=== PATIENT | female | born 1960 | race Caucasian/White ===

== ENCOUNTER 2020-05-31 11:51 | Emergency (ER) | payer OTHER ==
[2020-05-31 13:02] LABS: #Lymphocytes 1.3 thou/uL (1.20-3.40); #Monocytes 0.4 thou/uL (0.11-0.59); #Neutrophils 3.2 thou/uL (1.40-6.50); %Basophils 0.3 % (0.0-1.0); %Eosinophils 0.7 % (0.0-10.0); %Lymphocytes 25.7 % (21.0-51.0); %Monocytes 8.2 % (0.0-10.0); %Neutrophils 65.2 % (42.0-75.0); Hemoglobin 11.5 g/dL (12.0-16.0); Mean Corpuscular HGB CONC 33.2 g/dL (32.0-36.0); Mean Corpuscular Hemoglobin 30.7 pg (27.0-31.0); Mean Corpuscular Volume 92.6 fL (78.0-98.0); Mean Platelet Volume 8.2 fL (7.4-10.4); Platelet Count 243 thou/uL (130-400); RBC Distribution Width 11.7 % (11.5-14.5); Red Blood Cell (RBC) Count 3.76 mill/uL (4.20-5.40); White Blood Cell (WBC) Count 4.9 thou/uL (4.8-10.8)
[2020-05-31 13:27] LABS: ALT (SGPT) 17 U/L (8-55); AST (SGOT) 20 U/L (5-34); Albumin 3.1 g/dL (3.4-4.8); Alkaline Phosphatase 87 U/L (40-110); Anion Gap 15 mmol/L (10-20); BUN (Urea Nitrogen) 34 mg/dL (9.8-20.1); Bilirubin, Total 0.5 mg/dL (0.2-1.2); Calc. Creatinine Clearance 0 mL/min (70-130); Calcium 8.1 mg/dL (7.8-10.44); Carbon Dioxide 28 mmol/L (23-31); Chloride 91 mmol/L (98-107); Estimated GFR-MDRD 25; Globulin 4.1 g/dL (2.4-3.5); Glucose 124 mg/dL (80-115); Lipase 9 U/L (8-78); Protein, Total 7.2 g/dL (6.0-8.3); Sodium 131 mmol/L (136-145)
[2020-05-31 13:30] LABS: Potassium 2.9 mmol/L (3.5-5.1)
[2020-05-31] MEDS ORDERED: Potassium Chloride 20 MEQ TAB ONE (13:55)
[2020-05-31 14:08] LABS: Bacteria/HPF None Seen HPF (None Seen); Bilirubin Negative (Negative); Blood, Urine Negative (Negative); Clarity Clear (Clear); Glucose, Urine (Dipstick) Normal (Negative); Ketone, Urine Negative (Negative); Leukocyte Negative Leu/uL (Negative); Nitrite Negative (Negative); Protein, Urine (Dipstick) 30 mg/dL (Neg-Trace); Specific Gravity, Urine 1.008 (1.002-1.036); Squamous Epithelial None Seen HPF (0-3); Urobilinogen Normal mg/dL (Less than 2); WBC/HPF 0-3 HPF (0-3)
== END 2020-05-31 15:29 | disposition left against medical advice (07) ==
LOC: ERS 11:51
DX: E86.0 Dehydration (principal); E86.1 Hypovolemia; N17.9 Acute kidney failure, unspecified; E87.6 Hypokalemia; E87.1 Hypo-osmolality and hyponatremia; I48.91 Unspecified atrial fibrillation
CPT/HCPCS: 36415; 80053; 81003; 81015; 83605; 83690; 85025; 93005; 96360

== ENCOUNTER 2020-10-13 22:03 | Inpatient (IN) | payer OTHER ==
[2020-10-13 22:36] LABS: Hemoglobin 7.7 g/dL (12.0-16.0); Mean Corpuscular HGB CONC 34.5 g/dL (32.0-36.0); Mean Corpuscular Hemoglobin 30.9 pg (27.0-31.0); Mean Corpuscular Volume 89.5 fL (78.0-98.0); Mean Platelet Volume 7.6 fL (7.4-10.4); Platelet Count 335 thou/uL (130-400); RBC Distribution Width 13.8 % (11.5-14.5); Red Blood Cell (RBC) Count 2.49 mill/uL (4.20-5.40); White Blood Cell (WBC) Count 6.2 thou/uL (4.8-10.8)
[2020-10-13] MEDS ORDERED: Piperacillin/Tazobactam 4.5 GM VIAL ONE (22:43)
[2020-10-13] MEDS ORDERED: metroNIDAZOLE 500 MG/100 ML BAG ONE (22:43)
[2020-10-13 22:45] LABS: ALT (SGPT) 14 U/L (8-55); AST (SGOT) 15 U/L (5-34); Albumin 2.7 g/dL (3.4-4.8); Alkaline Phosphatase 97 U/L (40-110); Anion Gap 31 mmol/L (10-20); BUN (Urea Nitrogen) 99 mg/dL (9.8-20.1); Bilirubin, Total 0.4 mg/dL (0.2-1.2); Calc. Creatinine Clearance 0 mL/min (70-130); Calcium 6.4 mg/dL (7.8-10.44); Chloride 97 mmol/L (98-107); Globulin 4.4 g/dL (2.4-3.5); Glucose 80 mg/dL (80-115); Protein, Total 7.1 g/dL (6.0-8.3); Sodium 133 mmol/L (136-145)
[2020-10-13 22:50] LABS: #Eosinphils 0.1 thou/uL (0.0-0.7); #Lymphocytes 0.6 thou/uL (1.20-3.40); #Monocytes 0.3 thou/uL (0.11-0.59); #Neutrophils 5.2 thou/uL (1.40-6.50); %Eosinophils 1.2 % (0.0-10.0); %Lymphocytes 9.7 % (21.0-51.0); %Monocytes 4.3 % (0.0-10.0); %Neutrophils 84.8 % (42.0-75.0); MDiff Complete? YES
[2020-10-13 22:52] LABS: Carbon Dioxide 9 mmol/L (23-31)
[2020-10-13 23:01] LABS: Magnesium 1.9 mg/dL (1.6-2.6)
[2020-10-13] MEDS ORDERED: Sodium Bicarb 50 MEQ/50 ML Abboject 8.4% SYRINGE ONE (23:33)
[2020-10-14] MEDS ORDERED: Fentanyl 100 MCG/2 ML VIAL ONE ×2 (00:05→06:00)
[2020-10-14] MEDS ORDERED: Hydrocortisone Sod Succ/PF 100 mg/2 ml Vial ONE (00:05)
[2020-10-14] MEDS ORDERED: Norepinephrine 8 MG/0.9% NS 250 ML ONE (00:09)
[2020-10-14] MEDS ORDERED: Sodium Bicarbonate 150 MEQ in Dextrose 5% in Water 1,000 ML IV SCH (00:15)
[2020-10-14] MEDS ORDERED: Norepinephrine 8 MG/0.9% NS 250 ML IVPB SCH (01:15)
[2020-10-14] MEDS ORDERED: Vancomycin HCl 1.25 GM in Sodium Chloride 0.9% 250 ML 250 ML IVPB SCH (02:15)
[2020-10-14 02:26] LABS: Bacteria/HPF None Seen HPF (None Seen); Bilirubin Negative (Negative); Blood, Urine Negative (Negative); Clarity Turbid (Clear); Glucose, Urine (Dipstick) Normal (Negative); Ketone, Urine Negative (Negative); Leukocyte 250 Leu/uL (Negative); Nitrite Negative (Negative); Protein, Urine (Dipstick) 30 mg/dL (Neg-Trace); RBC/HPF 0-3 HPF (0-3); Specific Gravity, Urine 1.014 (1.002-1.036); Transitional Epithelial 0-3 HPF (None Seen); Urobilinogen Normal mg/dL (Less than 2); WBC/HPF 0-3 HPF (0-3)
[2020-10-14 02:38] LABS: SARS-CoV-2 NAA Rapid Test Not Detected (NotDetected)
[2020-10-14 04:43] LABS: #Lymphocytes 0.6 thou/uL (1.20-3.40); #Monocytes 0.1 thou/uL (0.11-0.59); #Neutrophils 6.1 thou/uL (1.40-6.50); %Basophils 0.4 % (0.0-1.0); %Eosinophils 0.6 % (0.0-10.0); %Lymphocytes 8.9 % (21.0-51.0); %Monocytes 1.9 % (0.0-10.0); %Neutrophils 88.2 % (42.0-75.0); Hemoglobin 7.3 g/dL (12.0-16.0); Mean Corpuscular HGB CONC 33.9 g/dL (32.0-36.0); Mean Corpuscular Hemoglobin 30.4 pg (27.0-31.0); Mean Corpuscular Volume 89.8 fL (78.0-98.0); Mean Platelet Volume 7.6 fL (7.4-10.4); Platelet Count 376 thou/uL (130-400); RBC Distribution Width 13.9 % (11.5-14.5); White Blood Cell (WBC) Count 6.9 thou/uL (4.8-10.8)
[2020-10-14 05:03] LABS: Iron 58 ug/dL (50-170); Iron Binding Capacity, Total 111 mcg/dL (265-497)
[2020-10-14 05:06] LABS: Anion Gap 29 mmol/L (10-20); BUN (Urea Nitrogen) 92 mg/dL (9.8-20.1); Calc. Creatinine Clearance 0 mL/min (70-130); Chloride 102 mmol/L (98-107); Glucose 120 mg/dL (80-115); Iron 58 ug/dL (50-170); Iron Binding Capacity, Total 114 mcg/dL (265-497); Potassium 3.8 mmol/L (3.5-5.1); Sodium 136 mmol/L (136-145)
[2020-10-14 05:11] LABS: Calcium 5.8 mg/dL (7.8-10.44); Carbon Dioxide 9 mmol/L (23-31)
[2020-10-14] MEDS ORDERED: Fentanyl 100 MCG/2 ML VIAL SLOW IVP SCH (06:00)
[2020-10-14] MEDS ORDERED: HYDROmorphone 0.5 MG/0.5 ML SYRINGE SLOW IVP SCH (06:15)
[2020-10-14 06:40] LABS: Hep B Core Total Ab Non-Reactive (NonReactive); Hep B Core Total Index 0.19 S/CO (0-0.79)
[2020-10-14 06:46] LABS: HBSAB Concentration Less than 8.00 mIU/mL; HBSAg Index 0.48 S/CO (0-0.99); Hep B Surf AB Non-Reactive (NonReactive); Hep B Surf Ag Non-Reactive S/CO (NonReactive)
[2020-10-14 06:47] LABS: Hep C IgG Ab Non-Reactive (NonReactive)
[2020-10-14] MEDS ORDERED: Piperacillin/Tazobactam 4.5 GM VIAL ONE ×2 (06:48→14:07)
[2020-10-14] MEDS: Piperacillin/Tazobactam 4.5 GM in Sodium Chloride 0.9% 100 ML IVPB SCH ×2 (07:00→14:15)
[2020-10-14] MEDS ORDERED: Prevnar 13-Val Conj/PF 0.5 ML SYRINGE IM ONE (08:00)
[2020-10-14] MEDS ORDERED: Vancomycin 1 GM in Premix Bag 1 BAG IVPB SCH (09:00)
[2020-10-14] MEDS ORDERED: Heparin 10,000 UNITS/ 10 ML VIAL ONE ×2 (09:59→12:04)
[2020-10-14] MEDS: Heparin 5,000 UNITS/ML VIAL SC SCH ×2 (14:06→15:04)
[2020-10-14] MEDS: levETIRAcetam 500 MG TAB PO SCH (15:08)
[2020-10-14] MEDS: carBAMazepine 100 mg Chewable Tablet PO SCH (15:08)
[2020-10-14 16:38] LABS: Hemoglobin 6.9 g/dL (12.0-16.0); Platelet Count 306 thou/uL (130-400)
[2020-10-14] MEDS: Lactated Ringer's 1,000 ML IV SCH (19:30)
[2020-10-15] MEDS: Carvedilol 6.25 MG TAB PO SCH ×3 (00:08→19:16)
[2020-10-15] MEDS ORDERED: Heparin 10,000 UNITS/ 10 ML VIAL ONE ×2 (00:14→09:30)
[2020-10-15] MEDS ORDERED: Piperacillin/Tazobactam 4.5 GM VIAL ONE ×2 (00:14→07:09)
[2020-10-15] MEDS: Piperacillin/Tazobactam 4.5 GM in Sodium Chloride 0.9% 100 ML IVPB SCH ×4 (00:29→21:44)
[2020-10-15] MEDS: Heparin 5,000 UNITS/ML VIAL SC SCH ×2 (02:23→10:31)
[2020-10-15 05:43] LABS: Anion Gap 26 mmol/L (10-20); BUN (Urea Nitrogen) 69 mg/dL (9.8-20.1); Calc. Creatinine Clearance 10 mL/min (70-130); Calcium 6.4 mg/dL (7.8-10.44); Carbon Dioxide 13 mmol/L (23-31); Chloride 102 mmol/L (98-107); Glucose 90 mg/dL (80-115); Potassium 3.3 mmol/L (3.5-5.1); Sodium 138 mmol/L (136-145)
[2020-10-15 06:03] LABS: #Eosinphils 0.1 thou/uL (0.0-0.7); #Lymphocytes 1.2 thou/uL (1.20-3.40); #Monocytes 0.7 thou/uL (0.11-0.59); #Neutrophils 7.4 thou/uL (1.40-6.50); %Basophils 0.1 % (0.0-1.0); %Eosinophils 1.3 % (0.0-10.0); %Lymphocytes 12.7 % (21.0-51.0); Mean Corpuscular Volume 92.3 fL (78.0-98.0); Mean Platelet Volume 7.9 fL (7.4-10.4); RBC Distribution Width 14.3 % (11.5-14.5); White Blood Cell (WBC) Count 9.4 thou/uL (4.8-10.8)
[2020-10-15 06:19] LABS: Red Blood Cell (RBC) Count 2.75 mill/uL (4.20-5.40)
[2020-10-15 06:20] LABS: Hemoglobin 8.5 g/dL (12.0-16.0); Mean Corpuscular Hemoglobin 30.9 pg (27.0-31.0)
[2020-10-15 06:21] LABS: Mean Corpuscular HGB CONC 33.5 g/dL (32.0-36.0); Platelet Count 275 thou/uL (130-400)
[2020-10-15] MEDS ORDERED: Heparin 10,000 UNITS/ 10 ML VIAL FS PRN ×2 (09:11→09:15)
[2020-10-15] MEDS ORDERED: Sodium Chloride 0.9% 100 ML BAG IVPB PRN (09:15)
[2020-10-15] MEDS: levETIRAcetam 500 MG TAB PO SCH ×2 (10:00→21:41)
[2020-10-15] MEDS ORDERED: Tuberculin PPD 0.1 ML VIAL I-DERMAL SCH (10:00)
[2020-10-15] MEDS: carBAMazepine 100 mg Chewable Tablet PO SCH ×2 (10:01→21:40)
[2020-10-15 10:11] LABS: HBSAB Concentration Less than 8.00 mIU/mL; HBSAg Index 0.25 S/CO (0-0.99); Hep B Core Total Ab Non-Reactive (NonReactive); Hep B Surf AB Non-Reactive (NonReactive); Hep B Surf Ag Non-Reactive S/CO (NonReactive); Hep C IgG Ab Non-Reactive (NonReactive); Hep C Index 0.39 S/CO (0-0.79)
[2020-10-15] MEDS: Lactated Ringer's 1,000 ML IV SCH (15:38)
[2020-10-15] MEDS ORDERED: Metoprolol Tartrate 5 MG/5 ML VIAL IVP PRN (18:47)
[2020-10-15] MEDS: Silver Sulfadiazine 50 GM TUBE TOP SCH (21:00)
[2020-10-15] MEDS ORDERED: HYDROcodone/Acetaminophen 5/325 mg Tablet PO PRN (21:48)
[2020-10-15] MEDS ORDERED: Lorazepam 2 MG/ML VIAL SLOW IVP SCH (23:15)
[2020-10-16 00:03] LABS: ALT (SGPT) 12 U/L (8-55); AST (SGOT) 13 U/L (5-34); Albumin 2.3 g/dL (3.4-4.8); Alkaline Phosphatase 59 U/L (40-110); Anion Gap 21 mmol/L (10-20); BUN (Urea Nitrogen) 42 mg/dL (9.8-20.1); Bilirubin, Total 0.4 mg/dL (0.2-1.2); CK (CPK) 55 U/L (29-168); Calc. Creatinine Clearance 14 mL/min (70-130); Calcium 6.6 mg/dL (7.8-10.44); Carbon Dioxide 20 mmol/L (23-31); Chloride 99 mmol/L (98-107); Globulin 3.9 g/dL (2.4-3.5); Glucose 116 mg/dL (80-115); Magnesium 1.7 mg/dL (1.6-2.6); Potassium 3.2 mmol/L (3.5-5.1); Protein, Total 6.2 g/dL (6.0-8.3); Sodium 137 mmol/L (136-145)
[2020-10-16 00:38] LABS: Hemoglobin 7.3 g/dL (12.0-16.0); Mean Corpuscular HGB CONC 34.5 g/dL (32.0-36.0); Mean Corpuscular Hemoglobin 31.1 pg (27.0-31.0); Mean Platelet Volume 7.4 fL (7.4-10.4); Platelet Count 253 thou/uL (130-400); RBC Distribution Width 14.1 % (11.5-14.5); Red Blood Cell (RBC) Count 2.36 mill/uL (4.20-5.40); White Blood Cell (WBC) Count 6.8 thou/uL (4.8-10.8)
[2020-10-16 00:42] LABS: #Eosinphils 0.1 thou/uL (0.0-0.7); #Lymphocytes 0.7 thou/uL (1.20-3.40); #Monocytes 0.2 thou/uL (0.11-0.59); #Neutrophils 5.7 thou/uL (1.40-6.50); %Basophils 0.4 % (0.0-1.0); %Eosinophils 1.8 % (0.0-10.0); %Lymphocytes 10.7 % (21.0-51.0); %Monocytes 3.1 % (0.0-10.0); Anisocytosis SLIGHT = 6-15 cells (100X) (0-5/hpf); MDiff Complete? YES
[2020-10-16] MEDS: Piperacillin/Tazobactam 4.5 GM in Sodium Chloride 0.9% 100 ML IVPB SCH (05:27)
[2020-10-16] MEDS ORDERED: Heparin 10,000 UNITS/ 10 ML VIAL ONE (09:30)
[2020-10-16] MEDS: Carvedilol 6.25 MG TAB PO SCH ×2 (12:28→17:04)
[2020-10-16] MEDS: levETIRAcetam 500 MG TAB PO SCH ×2 (12:28→20:30)
[2020-10-16] MEDS: carBAMazepine 100 mg Chewable Tablet PO SCH ×2 (12:28→20:30)
[2020-10-16 13:32] LABS: #Eosinphils 0.1 thou/uL (0.0-0.7); #Lymphocytes 1.3 thou/uL (1.20-3.40); #Monocytes 0.4 thou/uL (0.11-0.59); #Neutrophils 8.6 thou/uL (1.40-6.50); %Basophils 0.2 % (0.0-1.0); %Eosinophils 0.8 % (0.0-10.0); %Lymphocytes 12.3 % (21.0-51.0); %Monocytes 3.8 % (0.0-10.0); %Neutrophils 82.9 % (42.0-75.0); Hemoglobin 7.7 g/dL (12.0-16.0); Mean Corpuscular HGB CONC 34.6 g/dL (32.0-36.0); Mean Corpuscular Hemoglobin 31.2 pg (27.0-31.0); Mean Corpuscular Volume 90.1 fL (78.0-98.0); Mean Platelet Volume 7.4 fL (7.4-10.4); Platelet Count 318 thou/uL (130-400); RBC Distribution Width 14.2 % (11.5-14.5); Red Blood Cell (RBC) Count 2.47 mill/uL (4.20-5.40); White Blood Cell (WBC) Count 10.3 thou/uL (4.8-10.8)
[2020-10-16 13:45] LABS: Anion Gap 18 mmol/L (10-20); BUN (Urea Nitrogen) 21 mg/dL (9.8-20.1); Calc. Creatinine Clearance 21 mL/min (70-130); Calcium 6.9 mg/dL (7.8-10.44); Carbon Dioxide 22 mmol/L (23-31); Chloride 99 mmol/L (98-107); Glucose 84 mg/dL (80-115); Potassium 3.4 mmol/L (3.5-5.1); Sodium 136 mmol/L (136-145)
[2020-10-16] MEDS: Piperacillin/Tazobactam 2.25 GM in Sodium Chloride 0.9% 100 ML IVPB SCH ×2 (15:07→20:42)
[2020-10-16] MEDS: Silver Sulfadiazine 50 GM TUBE TOP SCH ×2 (15:07→20:30)
[2020-10-16] MEDS ORDERED: CEFAZOLIN 2 GM in Premix Bag 1 BAG IVPB SCH (16:00)
[2020-10-16] MEDS: Lactated Ringer's 1,000 ML IV SCH (20:29)
[2020-10-17] MEDS: Lactated Ringer's 1,000 ML IV SCH (01:27)
[2020-10-17] MEDS: Piperacillin/Tazobactam 2.25 GM in Sodium Chloride 0.9% 100 ML IVPB SCH ×2 (05:21→15:22)
[2020-10-17] MEDS ORDERED: Carvedilol 6.25 MG TAB PO SCH (08:00)
[2020-10-17] MEDS ORDERED: READ PPD TEST SITE PO SCH (09:00)
[2020-10-17] MEDS: Carvedilol 6.25 MG TAB PO SCH ×3 (09:29→20:12)
[2020-10-17] MEDS: carBAMazepine 100 mg Chewable Tablet PO SCH ×3 (09:29→20:21)
[2020-10-17] MEDS: levETIRAcetam 500 MG TAB PO SCH ×3 (09:29→20:21)
[2020-10-17] MEDS: Silver Sulfadiazine 50 GM TUBE TOP SCH ×2 (09:33→20:11)
[2020-10-17] MEDS ORDERED: PROPOFOL 200 MG/20 ML VIAL ONE (10:08)
[2020-10-17] MEDS ORDERED: Ondansetron PF 4 MG/2 ML Vial ONE (10:08)
[2020-10-17] MEDS ORDERED: Dexamethasone 20 MG/5 ML VIAL ONE (10:08)
[2020-10-17] MEDS ORDERED: PHENYLEPHRINE-NS 100 MCG/ML 10 ML SYRINGE ONE (10:08)
[2020-10-17] MEDS ORDERED: Lidocaine 2% w/Epinephrine 1:200K 20 ML VIAL ONE (11:00)
[2020-10-17] MEDS ORDERED: Protamine Sulfate 50 MG/5 ML VIAL ONE (11:00)
[2020-10-17] MEDS ORDERED: Heparin 5,000 UNITS/ML VIAL ONE (11:00)
[2020-10-17] MEDS ORDERED: Bupivacaine PF 0.5% 30 ML VIAL ONE (11:00)
[2020-10-17 11:22] LABS: Anion Gap 17 mmol/L (10-20); BUN (Urea Nitrogen) 28 mg/dL (9.8-20.1); Calc. Creatinine Clearance 15 mL/min (70-130); Calcium 6.9 mg/dL (7.8-10.44); Carbon Dioxide 23 mmol/L (23-31); Chloride 100 mmol/L (98-107); Glucose 90 mg/dL (80-115); Potassium 3.2 mmol/L (3.5-5.1); Sodium 137 mmol/L (136-145)
[2020-10-17] MEDS ORDERED: Fentanyl 100 MCG/2 ML VIAL ONE ×3 (12:03→15:07)
[2020-10-17] MEDS ORDERED: Ketamine 50 MG/ML (10ML VIAL) ONE (12:07)
[2020-10-17] MEDS ORDERED: Heparin 10,000 UNITS/ 10 ML VIAL ONE (12:23)
[2020-10-17] MEDS ORDERED: Sodium Chloride 0.9% 20 ML ONE (12:23)
[2020-10-17 13:14] LABS: Hep B Surface AG-Rflx Sendout Negative (Negative); Hepatitis B Core Total Negative (Negative); Hepatitis B Surface AB-Sendout Non Reactive (.)
[2020-10-17] MEDS ORDERED: Sodium Chloride 0.9% 10 ML ONE (14:49)
[2020-10-17] MEDS: HYDROcodone/Acetaminophen 5/325 mg Tablet PO PRN ×2 (16:43→21:34)
[2020-10-17] MEDS: Morphine 2 MG/ML VIAL SLOW IVP PRN (20:14)
[2020-10-18] MEDS: Lactated Ringer's 1,000 ML IV SCH ×2 (00:06→08:04)
[2020-10-18] MEDS: Morphine 2 MG/ML VIAL SLOW IVP PRN ×4 (00:07→20:43)
[2020-10-18 04:24] LABS: #Basophils 0.1 thou/uL (0.0-0.2); #Lymphocytes 1.5 thou/uL (1.20-3.40); #Monocytes 0.6 thou/uL (0.11-0.59); #Neutrophils 5.6 thou/uL (1.40-6.50); %Basophils 0.7 % (0.0-1.0); %Eosinophils 0.5 % (0.0-10.0); %Lymphocytes 19.6 % (21.0-51.0); %Monocytes 7.9 % (0.0-10.0); %Neutrophils 71.2 % (42.0-75.0); Hemoglobin 6.6 g/dL (12.0-16.0); Mean Corpuscular Hemoglobin 30.6 pg (27.0-31.0); Mean Corpuscular Volume 92.8 fL (78.0-98.0); Mean Platelet Volume 7.5 fL (7.4-10.4); Platelet Count 324 thou/uL (130-400); RBC Distribution Width 14.1 % (11.5-14.5); Red Blood Cell (RBC) Count 2.16 mill/uL (4.20-5.40); White Blood Cell (WBC) Count 7.8 thou/uL (4.8-10.8)
[2020-10-18 04:47] LABS: Anion Gap 18 mmol/L (10-20); BUN (Urea Nitrogen) 17 mg/dL (9.8-20.1); Calc. Creatinine Clearance 22 mL/min (70-130); Calcium 7.1 mg/dL (7.8-10.44); Carbon Dioxide 22 mmol/L (23-31); Chloride 100 mmol/L (98-107); Glucose 63 mg/dL (80-115); Potassium 3.5 mmol/L (3.5-5.1); Sodium 136 mmol/L (136-145)
[2020-10-18] MEDS ORDERED: Metoprolol Tartrate 5 MG/5 ML VIAL IVP SCH (06:15)
[2020-10-18] MEDS: levETIRAcetam 500 MG TAB PO SCH ×2 (07:55→20:42)
[2020-10-18] MEDS: Carvedilol 6.25 MG TAB PO SCH ×3 (07:55→20:42)
[2020-10-18] MEDS: carBAMazepine 100 mg Chewable Tablet PO SCH ×2 (07:55→20:41)
[2020-10-18] MEDS: Silver Sulfadiazine 50 GM TUBE TOP SCH ×2 (07:56→20:42)
[2020-10-18] MEDS: HYDROcodone/Acetaminophen 5/325 mg Tablet PO PRN (08:04)
[2020-10-18] MEDS ORDERED: Digoxin 0.5 MG/2 ML AMP SLOW IVP SCH (08:15)
[2020-10-18] MEDS: Diltiazem 125 MG in Sodium Chloride 0.9% 100 ML IVPB SCH (08:44)
[2020-10-18 10:41] LABS: Routine O & P Final report (.)
[2020-10-18] MEDS: diphenhydrAMINE 25 MG CAP PO PRN (13:41)
[2020-10-18 15:38] LABS: Neutral Fats And/Or Soaps Normal (.)
[2020-10-18] MEDS: traMADol HCl 50 MG TAB PO PRN (17:14)
[2020-10-18] MEDS: Acetaminophen 500 MG TAB PO PRN (20:42)
[2020-10-19] MEDS: diphenhydrAMINE 25 MG CAP PO PRN ×3 (00:05→15:16)
[2020-10-19] MEDS: traMADol HCl 50 MG TAB PO PRN (00:05)
[2020-10-19] MEDS: Morphine 2 MG/ML VIAL SLOW IVP PRN ×2 (04:32→15:19)
[2020-10-19] MEDS: Lactated Ringer's 1,000 ML IV SCH ×2 (04:32→21:04)
[2020-10-19] MEDS: Diltiazem 125 MG in Sodium Chloride 0.9% 100 ML IVPB SCH (07:53)
[2020-10-19 08:09] LABS: #Basophils 0.1 thou/uL (0.0-0.2); #Eosinphils 0.1 thou/uL (0.0-0.7); #Lymphocytes 1.4 thou/uL (1.20-3.40); #Monocytes 0.5 thou/uL (0.11-0.59); #Neutrophils 4.5 thou/uL (1.40-6.50); %Basophils 0.9 % (0.0-1.0); %Eosinophils 2.1 % (0.0-10.0); %Lymphocytes 20.8 % (21.0-51.0); %Monocytes 7.2 % (0.0-10.0); %Neutrophils 69.1 % (42.0-75.0); Hemoglobin 6.7 g/dL (12.0-16.0); Mean Corpuscular HGB CONC 33.9 g/dL (32.0-36.0); Mean Corpuscular Hemoglobin 31.3 pg (27.0-31.0); Mean Corpuscular Volume 92.1 fL (78.0-98.0); Platelet Count 235 thou/uL (130-400); RBC Distribution Width 15.1 % (11.5-14.5); Red Blood Cell (RBC) Count 2.15 mill/uL (4.20-5.40); White Blood Cell (WBC) Count 6.6 thou/uL (4.8-10.8)
[2020-10-19 08:28] LABS: Anion Gap 11 mmol/L (10-20); BUN (Urea Nitrogen) 22 mg/dL (9.8-20.1); Calc. Creatinine Clearance 15 mL/min (70-130); Calcium 7.1 mg/dL (7.8-10.44); Carbon Dioxide 26 mmol/L (23-31); Chloride 99 mmol/L (98-107); Glucose 109 mg/dL (80-115); Potassium 3.3 mmol/L (3.5-5.1); Sodium 133 mmol/L (136-145)
[2020-10-19] MEDS ORDERED: Acetaminophen 325 MG TAB PO SCH (08:30)
[2020-10-19] MEDS ORDERED: diphenhydrAMINE 25 MG CAP PO SCH (08:30)
[2020-10-19] MEDS: Silver Sulfadiazine 50 GM TUBE TOP SCH ×2 (10:55→22:44)
[2020-10-19] MEDS ORDERED: traMADol HCl 50 MG TAB PO PRN (12:15)
[2020-10-19] MEDS ORDERED: Potassium Bicarbonate/Cit Ac 20 MEQ TAB PO SCH (12:45)
[2020-10-19] MEDS ORDERED: Heparin 10,000 UNITS/ 10 ML VIAL ONE (12:49)
[2020-10-19] MEDS: Carvedilol 6.25 MG TAB PO SCH (13:40)
[2020-10-19] MEDS ORDERED: Lorazepam 1 MG TAB PO SCH ×2 (15:15→16:00)
[2020-10-19] MEDS: levETIRAcetam 500 MG TAB PO SCH ×2 (15:15→22:43)
[2020-10-19] MEDS: carBAMazepine 100 mg Chewable Tablet PO SCH ×2 (15:15→22:43)
[2020-10-19] MEDS: hydrALAZINE 25 MG TAB PO PRN (16:48)
[2020-10-19] MEDS ORDERED: Tuberculin PPD 0.1 ML VIAL I-DERMAL SCH (17:45)
[2020-10-19 17:47] LABS: Hemoglobin 10.3 g/dL (12.0-16.0)
[2020-10-19] MEDS ORDERED: levETIRAcetam in NS 1,000 MG in Premix Bag 1 BAG IVPB SCH (21:45)
[2020-10-19] MEDS: Carvedilol 25 MG TAB PO SCH (22:43)
[2020-10-20] MEDS: hydrALAZINE 25 MG TAB PO PRN (04:02)
[2020-10-20] MEDS: Acetaminophen 500 MG TAB PO PRN (04:02)
[2020-10-20] MEDS: Carvedilol 25 MG TAB PO SCH (08:28)
[2020-10-20] MEDS: Silver Sulfadiazine 50 GM TUBE TOP SCH ×2 (08:28→20:18)
[2020-10-20] MEDS: levETIRAcetam 500 MG TAB PO SCH ×2 (08:28→20:07)
[2020-10-20] MEDS: carBAMazepine 100 mg Chewable Tablet PO SCH ×2 (08:28→20:07)
[2020-10-20] MEDS ORDERED: Potassium Chloride 10 MEQ TAB PO SCH (10:15)
[2020-10-20] MEDS: diphenhydrAMINE 25 MG CAP PO PRN ×2 (16:14→22:18)
[2020-10-20 17:13] LABS: EliA Celiac New Method **** NEW METHOD ****; t-Transglutaminase (tTG) IgA 1.1 EliAU/mL (<7 Negative)
[2020-10-20] MEDS: Morphine 2 MG/ML VIAL SLOW IVP PRN (20:06)
[2020-10-20] MEDS: Lactated Ringer's 1,000 ML IV SCH (23:46)
[2020-10-21] MEDS: diphenhydrAMINE 25 MG CAP PO PRN ×3 (03:28→23:19)
[2020-10-21] MEDS: Morphine 2 MG/ML VIAL SLOW IVP PRN ×2 (03:29→23:19)
[2020-10-21] MEDS: levETIRAcetam 500 MG TAB PO SCH ×2 (10:02→22:29)
[2020-10-21] MEDS: carBAMazepine 100 mg Chewable Tablet PO SCH ×2 (10:02→22:30)
[2020-10-21] MEDS: HYDROcodone/Acetaminophen 5/325 mg Tablet PO PRN (10:03)
[2020-10-21] MEDS: Silver Sulfadiazine 50 GM TUBE TOP SCH ×2 (10:07→22:30)
[2020-10-21 10:48] LABS: #Basophils 0.1 thou/uL (0.0-0.2); #Eosinphils 0.1 thou/uL (0.0-0.7); #Lymphocytes 1.3 thou/uL (1.20-3.40); #Monocytes 0.5 thou/uL (0.11-0.59); %Basophils 0.9 % (0.0-1.0); %Eosinophils 1.4 % (0.0-10.0); %Monocytes 6.8 % (0.0-10.0); Hemoglobin 9.7 g/dL (12.0-16.0); Mean Corpuscular Hemoglobin 29.7 pg (27.0-31.0); Mean Platelet Volume 7.4 fL (7.4-10.4); Platelet Count 214 thou/uL (130-400); RBC Distribution Width 15.8 % (11.5-14.5); Red Blood Cell (RBC) Count 3.27 mill/uL (4.20-5.40); White Blood Cell (WBC) Count 6.9 thou/uL (4.8-10.8)
[2020-10-21] MEDS ORDERED: Heparin 10,000 UNITS/ 10 ML VIAL ONE (12:45)
[2020-10-21] MEDS ORDERED: GoLYTELY 4,000 ml Bottle PO SCH (17:00)
[2020-10-21] MEDS ORDERED: READ PPD TEST SITE PO SCH (17:45)
[2020-10-21] MEDS: Amoxicillin/Potassium Clav 875 MG TAB PO SCH (22:29)
[2020-10-22] MEDS: HYDROcodone/Acetaminophen 5/325 mg Tablet PO PRN ×2 (03:39→14:01)
[2020-10-22] MEDS ORDERED: diphenhydrAMINE 25 MG CAP PO SCH (04:15)
[2020-10-22] MEDS: Lactated Ringer's 1,000 ML IV SCH (04:26)
[2020-10-22 05:15] LABS: Anion Gap 12 mmol/L (10-20); BUN (Urea Nitrogen) 6 mg/dL (9.8-20.1); Calc. Creatinine Clearance 27 mL/min (70-130); Calcium 6.6 mg/dL (7.8-10.44); Carbon Dioxide 30 mmol/L (23-31); Chloride 98 mmol/L (98-107); Glucose 91 mg/dL (80-115); Potassium 4.2 mmol/L (3.5-5.1); Sodium 136 mmol/L (136-145)
[2020-10-22] MEDS: levETIRAcetam 500 MG TAB PO SCH ×2 (07:05→20:54)
[2020-10-22] MEDS: carBAMazepine 100 mg Chewable Tablet PO SCH ×2 (07:06→20:54)
[2020-10-22] MEDS ORDERED: Promethazine HCl 25 MG/ML VIAL SLOW IVP PRN (09:00)
[2020-10-22] MEDS ORDERED: Ondansetron HCl/PF 4 MG/2 ML Vial IVP PRN (09:00)
[2020-10-22] MEDS ORDERED: Promethazine HCl 25 MG/ML VIAL IM PRN (09:00)
[2020-10-22] MEDS: Silver Sulfadiazine 50 GM TUBE TOP SCH ×2 (09:16→20:49)
[2020-10-22] MEDS ORDERED: Loperamide HCl 2 MG CAP PO PRN (09:21)
[2020-10-22] MEDS ORDERED: Sodium Chloride 0.9% (PF) 10 ML VIAL FS PRN (09:30)
[2020-10-22] MEDS: Amoxicillin/Potassium Clav 875 MG TAB PO SCH (09:54)
[2020-10-22] MEDS ORDERED: Lidocaine 1% PF 5 ML VIAL ONE (11:04)
[2020-10-22] MEDS ORDERED: PROPOFOL 200 MG/20 ML VIAL ONE (11:04)
[2020-10-22] MEDS: diphenhydrAMINE 25 MG CAP PO PRN ×3 (11:13→22:58)
[2020-10-23] MEDS: Lactated Ringer's 1,000 ML IV SCH ×2 (01:31→20:52)
[2020-10-23] MEDS: hydrALAZINE 25 MG TAB PO PRN (03:16)
[2020-10-23] MEDS: levETIRAcetam 500 MG TAB PO SCH ×2 (07:41→20:50)
[2020-10-23] MEDS: carBAMazepine 100 mg Chewable Tablet PO SCH ×2 (07:41→20:51)
[2020-10-23] MEDS ORDERED: Pantoprazole 40 MG VIAL IVP SCH (09:00)
[2020-10-23 10:41] LABS: #Basophils 0.1 thou/uL (0.0-0.2); #Lymphocytes 0.9 thou/uL (1.20-3.40); #Monocytes 0.4 thou/uL (0.11-0.59); #Neutrophils 5.1 thou/uL (1.40-6.50); %Basophils 0.8 % (0.0-1.0); %Eosinophils 0.2 % (0.0-10.0); %Lymphocytes 14.4 % (21.0-51.0); %Monocytes 5.5 % (0.0-10.0); %Neutrophils 79.1 % (42.0-75.0); Hemoglobin 10.9 g/dL (12.0-16.0); Mean Corpuscular HGB CONC 31.5 g/dL (32.0-36.0); Mean Corpuscular Hemoglobin 28.8 pg (27.0-31.0); Mean Corpuscular Volume 91.2 fL (78.0-98.0); Mean Platelet Volume 7.7 fL (7.4-10.4); Platelet Count 230 thou/uL (130-400); RBC Distribution Width 16.3 % (11.5-14.5); Red Blood Cell (RBC) Count 3.78 mill/uL (4.20-5.40); White Blood Cell (WBC) Count 6.4 thou/uL (4.8-10.8)
[2020-10-23] MEDS ORDERED: Heparin 10,000 UNITS/ 10 ML VIAL ONE (11:40)
[2020-10-23] MEDS: Morphine 2 MG/ML VIAL SLOW IVP PRN (13:32)
[2020-10-23] MEDS: Silver Sulfadiazine 50 GM TUBE TOP SCH ×2 (13:37→20:51)
[2020-10-23] MEDS: Loperamide HCl 2 MG CAP PO SCH (17:40)
[2020-10-23] MEDS: diphenhydrAMINE 25 MG CAP PO PRN (21:02)
[2020-10-24 03:59] LABS: #Lymphocytes 1.6 thou/uL (1.20-3.40); #Monocytes 0.6 thou/uL (0.11-0.59); #Neutrophils 4.2 thou/uL (1.40-6.50); %Basophils 0.6 % (0.0-1.0); %Eosinophils 0.4 % (0.0-10.0); %Lymphocytes 24.5 % (21.0-51.0); %Monocytes 8.9 % (0.0-10.0); %Neutrophils 65.6 % (42.0-75.0); Hemoglobin 9.4 g/dL (12.0-16.0); Mean Corpuscular HGB CONC 33.3 g/dL (32.0-36.0); Mean Corpuscular Hemoglobin 30.4 pg (27.0-31.0); Mean Corpuscular Volume 91.4 fL (78.0-98.0); Mean Platelet Volume 7.8 fL (7.4-10.4); Platelet Count 177 thou/uL (130-400); Red Blood Cell (RBC) Count 3.08 mill/uL (4.20-5.40); White Blood Cell (WBC) Count 6.3 thou/uL (4.8-10.8)
[2020-10-24] MEDS: hydrALAZINE 25 MG TAB PO PRN ×2 (05:20→19:17)
[2020-10-24] MEDS: levETIRAcetam 500 MG TAB PO SCH ×2 (08:37→19:17)
[2020-10-24] MEDS: Loperamide HCl 2 MG CAP PO SCH ×3 (08:37→17:52)
[2020-10-24] MEDS: carBAMazepine 100 mg Chewable Tablet PO SCH ×2 (08:37→19:17)
[2020-10-24] MEDS: Silver Sulfadiazine 50 GM TUBE TOP SCH ×2 (08:38→19:18)
[2020-10-24] MEDS: Metamucil PACK PO SCH (08:42)
[2020-10-24] MEDS ORDERED: Amlodipine 10 MG TAB PO SCH (09:15)
[2020-10-24 15:46] VITALS: BMI 23.3
[2020-10-24] MEDS: Lactated Ringer's 1,000 ML IV SCH (17:52)
[2020-10-24] MEDS: diphenhydrAMINE 25 MG CAP PO PRN (19:17)
[2020-10-25 04:39] LABS: #Basophils 0.1 thou/uL (0.0-0.2); #Lymphocytes 1.6 thou/uL (1.20-3.40); #Monocytes 0.5 thou/uL (0.11-0.59); %Eosinophils 0.7 % (0.0-10.0); %Lymphocytes 30.9 % (21.0-51.0); %Monocytes 8.7 % (0.0-10.0); %Neutrophils 58.6 % (42.0-75.0); Hemoglobin 8.9 g/dL (12.0-16.0); Mean Corpuscular HGB CONC 32.3 g/dL (32.0-36.0); Mean Corpuscular Hemoglobin 29.7 pg (27.0-31.0); Mean Platelet Volume 7.7 fL (7.4-10.4); Platelet Count 158 thou/uL (130-400); White Blood Cell (WBC) Count 5.2 thou/uL (4.8-10.8)
[2020-10-25 07:45] VITALS: BP 149/82; TEMP 98.4
[2020-10-25] MEDS: Silver Sulfadiazine 50 GM TUBE TOP SCH (07:47)
[2020-10-25] MEDS: Lactated Ringer's 1,000 ML IV SCH (09:19)
[2020-10-25] MEDS: Loperamide HCl 2 MG CAP PO SCH (09:21)
[2020-10-25] MEDS: carBAMazepine 100 mg Chewable Tablet PO SCH (09:21)
[2020-10-25] MEDS: levETIRAcetam 500 MG TAB PO SCH (09:22)
[2020-10-25] MEDS: Metamucil PACK PO SCH (09:23)
== END 2020-10-25 10:30 | disposition home or self-care (01) | DRG 853 ==
LOC: ERS 22:03 → ERHOLD 10-14 00:26 → 2NO 10-15 15:01
PROVIDERS: ADMIT Student in an Organized Health Care Education/Training Program; ATTEND Internal Medicine
PROC: 30233N1 Transfusion of Nonautologous Red Blood Cells into Peripheral Vein, Percutaneous Approach (ICD-10-PCS; 2020-10-14)
PROC: 02HV33Z Insertion of Infusion Device into Superior Vena Cava, Percutaneous Approach (ICD-10-PCS; 2020-10-14)
PROC: 3E033XZ Introduction of Vasopressor into Peripheral Vein, Percutaneous Approach (ICD-10-PCS; 2020-10-14)
PROC: 5A1D70Z Performance of Urinary Filtration, Intermittent, Less than 6 Hours Per Day (ICD-10-PCS; 2020-10-14)
PROC: 5A1D70Z Performance of Urinary Filtration, Intermittent, Less than 6 Hours Per Day (ICD-10-PCS; 2020-10-15)
PROC: 5A1D70Z Performance of Urinary Filtration, Intermittent, Less than 6 Hours Per Day (ICD-10-PCS; 2020-10-16)
PROC: 0JH63XZ Insertion of Tunneled Vascular Access Device into Chest Subcutaneous Tissue and Fascia, Percutaneous Approach (ICD-10-PCS; principal; 2020-10-17)
PROC: 031C0ZF Bypass Left Radial Artery to Lower Arm Vein, Open Approach (ICD-10-PCS; 2020-10-17)
PROC: 02H633Z Insertion of Infusion Device into Right Atrium, Percutaneous Approach (ICD-10-PCS; 2020-10-17)
PROC: 0JBD0ZZ Excision of Right Upper Arm Subcutaneous Tissue and Fascia, Open Approach (ICD-10-PCS; 2020-10-17)
PROC: 5A1D70Z Performance of Urinary Filtration, Intermittent, Less than 6 Hours Per Day (ICD-10-PCS; 2020-10-17)
PROC: 5A1D70Z Performance of Urinary Filtration, Intermittent, Less than 6 Hours Per Day (ICD-10-PCS; 2020-10-19)
PROC: 5A1D70Z Performance of Urinary Filtration, Intermittent, Less than 6 Hours Per Day (ICD-10-PCS; 2020-10-21)
PROC: 0DB98ZX Excision of Duodenum, Via Natural or Artificial Opening Endoscopic, Diagnostic (ICD-10-PCS; 2020-10-22)
PROC: 0DB68ZX Excision of Stomach, Via Natural or Artificial Opening Endoscopic, Diagnostic (ICD-10-PCS; 2020-10-22)
PROC: 0DBK8ZX Excision of Ascending Colon, Via Natural or Artificial Opening Endoscopic, Diagnostic (ICD-10-PCS; 2020-10-22)
PROC: 0DBL8ZX Excision of Transverse Colon, Via Natural or Artificial Opening Endoscopic, Diagnostic (ICD-10-PCS; 2020-10-22)
PROC: 0DBN8ZX Excision of Sigmoid Colon, Via Natural or Artificial Opening Endoscopic, Diagnostic (ICD-10-PCS; 2020-10-22)
PROC: 0DBP8ZX Excision of Rectum, Via Natural or Artificial Opening Endoscopic, Diagnostic (ICD-10-PCS; 2020-10-22)
PROC: 0DBM8ZX Excision of Descending Colon, Via Natural or Artificial Opening Endoscopic, Diagnostic (ICD-10-PCS; 2020-10-22)
PROC: 0DBH8ZX Excision of Cecum, Via Natural or Artificial Opening Endoscopic, Diagnostic (ICD-10-PCS; 2020-10-22)
PROC: 5A1D70Z Performance of Urinary Filtration, Intermittent, Less than 6 Hours Per Day (ICD-10-PCS; 2020-10-23)
DX: A41.9 Sepsis, unspecified organism (principal); R65.21 Severe sepsis with septic shock; N18.6 End stage renal disease; T22.311A Burn of third degree of right forearm, initial encounter; N17.9 Acute kidney failure, unspecified; E87.2 Acidosis; I42.8 Other cardiomyopathies; I12.0 Hypertensive chronic kidney disease with stage 5 chronic kidney disease or end stage renal disease; E87.1 Hypo-osmolality and hyponatremia; K52.9 Noninfective gastroenteritis and colitis, unspecified; I48.91 Unspecified atrial fibrillation; G40.909 Epilepsy, unspecified, not intractable, without status epilepticus; E53.8 Deficiency of other specified B group vitamins; X08.8XXA Exposure to other specified smoke, fire and flames, initial encounter; M32.19 Other organ or system involvement in systemic lupus erythematosus; D63.1 Anemia in chronic kidney disease; K29.80 Duodenitis without bleeding; K64.8 Other hemorrhoids; E86.0 Dehydration; Z79.899 Other long term (current) drug therapy; Z79.82 Long term (current) use of aspirin; K44.9 Diaphragmatic hernia without obstruction or gangrene
CPT/HCPCS: 36415; 36430; 36556; 51702; 71045; 80048; 80053; 80177; 81003; 81015; 82550; 82607; 82705; 82728; 82746; 83516; 83540; 83550; 83605; 83630; 83735; 83930; 84146; 84443; 84484; 85025; 86580; 86704; 86705; 86706; 86707; 86803; 86850; 86900; 86901; 87015; 87040; 87045; 87046; 87077; 87086; 87177; 87186; 87206; 87324; 87328; 87329; 87340; 87350; 87427; 87449; 88305; 88312; 90935; 93005; 93010; 93970; 94640; 95816; 95819; 95957; 96365; 96366; 96367; 96368; 96375; 99292; C1752; G0257; J0690; J1100; J1160; J1644; J1720; J1953; J2060; J2270; J2405; J2543; J2704; J2720; J3010; J3370; J3490; J7050; J7070; J7620; P9016; Q0163; S0020; U0002

== ENCOUNTER 2020-10-30 10:08 | Inpatient (IN) | payer OTHER ==
[2020-10-30] MEDS ORDERED: Pantoprazole 40 MG VIAL ONE (10:39)
[2020-10-30 10:43] LABS: #Basophils 0.1 thou/uL (0.0-0.2); #Lymphocytes 2.4 thou/uL (1.20-3.40); #Monocytes 0.3 thou/uL (0.11-0.59); %Basophils 0.8 % (0.0-1.0); %Eosinophils 0.6 % (0.0-10.0); %Lymphocytes 34.9 % (21.0-51.0); %Monocytes 5.1 % (0.0-10.0); %Neutrophils 58.6 % (42.0-75.0); Hemoglobin 6.3 g/dL (12.0-16.0); Mean Corpuscular Hemoglobin 29.4 pg (27.0-31.0); Mean Corpuscular Volume 91.9 fL (78.0-98.0); Mean Platelet Volume 8.8 fL (7.4-10.4); Platelet Count 192 thou/uL (130-400); RBC Distribution Width 14.7 % (11.5-14.5); Red Blood Cell (RBC) Count 2.15 mill/uL (4.20-5.40); White Blood Cell (WBC) Count 6.8 thou/uL (4.8-10.8)
[2020-10-30] MEDS ORDERED: Lidocaine 1% PF 5 ML VIAL ONE (10:43)
[2020-10-30] MEDS ORDERED: PROPOFOL 200 MG/20 ML VIAL ONE (10:43)
[2020-10-30] MEDS ORDERED: EPINEPHrine 1 MG/10 ML Abboject SYRINGE ONE (10:44)
[2020-10-30] MEDS ORDERED: Pantoprazole 80 MG, Admixture Fee 1 EACH in Sodium Chloride 0.9% 100 ML IVPB SCH (11:00)
[2020-10-30 11:09] LABS: ALT (SGPT) 11 U/L (8-55); AST (SGOT) 14 U/L (5-34); Albumin 2.4 g/dL (3.4-4.8); Alkaline Phosphatase 64 U/L (40-110); Anion Gap 13 mmol/L (10-20); BUN (Urea Nitrogen) 21 mg/dL (9.8-20.1); Bilirubin, Total 0.4 mg/dL (0.2-1.2); Calc. Creatinine Clearance 0 mL/min (70-130); Carbon Dioxide 31 mmol/L (23-31); Chloride 101 mmol/L (98-107); Globulin 3.2 g/dL (2.4-3.5); Glucose 144 mg/dL (80-115); Potassium 4.2 mmol/L (3.5-5.1); Protein, Total 5.6 g/dL (5.8-8.1); Sodium 141 mmol/L (136-145)
[2020-10-30] MEDS ORDERED: Heparin 1,000 UNITS/ML VIAL ONE (11:34)
[2020-10-30] MEDS ORDERED: Fentanyl 100 MCG/2 ML VIAL SLOW IVP PRN (12:36)
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
[2020-10-30] MEDS ORDERED: Diltiazem 125 MG/25 ML ONE (13:36)
[2020-10-30 13:43] LABS: Lactic Acid 1.4 mmol/L (0.5-2.2)
[2020-10-30] MEDS ORDERED: levETIRAcetam in NS 1,000 MG in Premix Bag 1 BAG IVPB SCH (15:00)
[2020-10-30 15:04] LABS: Hemoglobin A1c 5.2 % (4.0-6.0)
--- NOTE | 2020-10-30 16:41 | NM ---
Nuclear medicine GI bleeding scan: 10/30/2020 HISTORY: 60 year old female with GI bleeding TECHNIQUE: IV injection of 25.8 mCi technetium 99m-erythrocytes. Dynamic anterior scintigraphy of abdomen for a total of 91 minutes. FINDINGS: GI bleeding occurs in the left upper quadrant of the abdomen, and progresses along bowel loops. It is uncertain whether this is in the left colon or jejunum. IMPRESSION: Active gastrointestinal bleeding in a left upper quadrant bowel loop
[2020-10-30] MEDS ORDERED: levETIRAcetam 500 MG/100 ML PREMIX BAG ONE (16:48)
[2020-10-30] MEDS: Sodium Chloride 0.9% 1,000 ML IV SCH (17:01)
[2020-10-30 17:47] LABS: Bacteria/HPF None Seen HPF (None Seen); Bilirubin Negative (Negative); Blood, Urine Negative (Negative); Clarity Clear (Clear); Glucose, Urine (Dipstick) Normal (Negative); Ketone, Urine Negative (Negative); Leukocyte Negative Leu/uL (Negative); Nitrite Negative (Negative); Protein, Urine (Dipstick) 200 mg/dL (Neg-Trace); RBC/HPF 0-3 HPF (0-3); Specific Gravity, Urine 1.018 (1.002-1.036); Squamous Epithelial 0-3 HPF (0-3); Urobilinogen Normal mg/dL (Less than 2); WBC/HPF 0-3 HPF (0-3); pH, Urine 6.5 (5.0-9.0)
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
[2020-10-30 17:49] LABS: SARS-CoV-2 NAA Rapid Test Not Detected (NotDetected)
[2020-10-30] MEDS ORDERED: Midazolam HCl 2 mg/2 ml Vial ONE (19:07)
[2020-10-30] MEDS ORDERED: Ondansetron HCl/PF 4 MG/2 ML Vial IVP PRN (20:59)
[2020-10-30] MEDS ORDERED: Promethazine HCl 25 MG/ML VIAL IM PRN (20:59)
[2020-10-30] MEDS ORDERED: Promethazine HCl 25 MG/ML VIAL SLOW IVP PRN (20:59)
[2020-10-30 22:41] LABS: Hemoglobin 10.5 g/dL (12.0-16.0); Mean Corpuscular HGB CONC 34.4 g/dL (32.0-36.0); Mean Corpuscular Hemoglobin 30.3 pg (27.0-31.0); Mean Corpuscular Volume 88.2 fL (78.0-98.0); Mean Platelet Volume 8.7 fL (7.4-10.4); Platelet Count 120 thou/uL (130-400); RBC Distribution Width 13.3 % (11.5-14.5); Red Blood Cell (RBC) Count 3.45 mill/uL (4.20-5.40); White Blood Cell (WBC) Count 9.1 thou/uL (4.8-10.8)
[2020-10-30] MEDS ORDERED: diphenhydrAMINE 25 MG CAP PO SCH (23:15)
[2020-10-30 23:36] VITALS: BMI 19.8
[2020-10-31] MEDS ORDERED: Diltiazem 125 MG in Sodium Chloride 0.9% 100 ML IVPB SCH ×2 (01:00→11:15)
--- NOTE | 2020-10-31 05:12 | OP ---
DATE OF PROCEDURE: 10/30/2020 PROCEDURE: Esophagogastroduodenoscopy with control of hemorrhage and colonoscopy. PREOPERATIVE DIAGNOSES: Gastrointestinal bleed and anemia of acute blood loss. DESCRIPTION OF PROCEDURE: Informed consent was obtained from the patient. She was sedated with total intravenous anesthesia. The endoscope was advanced easily to the second portion of the duodenum and retroflexion was performed in the stomach. The esophagus was normal. The GE junction was normal. The stomach had heme staining, but was unremarkable without any bleeding in the stomach. There was active steady red bleeding from the junction between the first and second portions of the duodenum, which was somewhat difficult to visualize. The site was irrigated and suctioned extensively and still she does blood constantly and steadily. An actual vessel or mucosal significant lesion could not be identified. This might have been a biopsy site from last week. Epinephrine a total of 6 mL, epinephrine 1:10,000 was injected around the bleeding site, however, still the bleeding persisted. I placed a hemoclip directly over this site and hemostasis was achieved. The second portion of the duodenum again had red blood, but no other bleeding sites. The patient was turned around. Rectal exam was performed and revealed a melenic stool in the rectal vault. The colonoscope was advanced to the cecum without significant difficulty. She had poor prep, but there is red blood and black blood staining throughout the colon. There was no active bleeding in the colon. IMPRESSION: 1. Actively bleeding mucosal lesion at the junction between the first and second portions of the duodenum, which appears to most likely be the one of the biopsy sites from last week. This was injected with epinephrine and ultimately hemoclip was placed over the site with good hemostasis confirmed. 2. Old melenic and red blood throughout the colon but no active bleeding here. RECOMMENDATIONS: 1. Check CBC in the morning. 2. Clear liquid diet. 3. She did receive a third unit of blood during the procedure, which was 1 unit during the procedure and 3 units total. Job ID: [id number]
[2020-10-31] MEDS: levETIRAcetam in NS 1,000 MG in Premix Bag 1 BAG IVPB SCH ×2 (07:27→11:47)
[2020-10-31] MEDS: Sodium Chloride 0.9% 1,000 ML IV SCH ×2 (07:28→18:07)
[2020-10-31] MEDS ORDERED: Heparin 10,000 UNITS/ 10 ML VIAL ONE (09:50)
[2020-10-31] MEDS ORDERED: levETIRAcetam 500 MG TAB PO SCH ×2 (11:00→21:00)
[2020-10-31 15:42] LABS: #Eosinphils 0.1 thou/uL (0.0-0.7); #Lymphocytes 1.6 thou/uL (1.20-3.40); #Monocytes 0.3 thou/uL (0.11-0.59); #Neutrophils 4.3 thou/uL (1.40-6.50); %Basophils 0.5 % (0.0-1.0); %Eosinophils 0.9 % (0.0-10.0); %Lymphocytes 25.9 % (21.0-51.0); %Monocytes 4.8 % (0.0-10.0); Hemoglobin 10.2 g/dL (12.0-16.0); Mean Corpuscular HGB CONC 33.5 g/dL (32.0-36.0); Mean Corpuscular Hemoglobin 30.3 pg (27.0-31.0); Mean Corpuscular Volume 90.4 fL (78.0-98.0); Mean Platelet Volume 8.4 fL (7.4-10.4); Platelet Count 131 thou/uL (130-400); RBC Distribution Width 13.5 % (11.5-14.5); Red Blood Cell (RBC) Count 3.36 mill/uL (4.20-5.40); White Blood Cell (WBC) Count 6.3 thou/uL (4.8-10.8)
[2020-10-31 15:58] LABS: ALT (SGPT) 11 U/L (8-55); AST (SGOT) 16 U/L (5-34); Albumin 2.2 g/dL (3.4-4.8); Alkaline Phosphatase 52 U/L (40-110); Anion Gap 13 mmol/L (10-20); BUN (Urea Nitrogen) 10 mg/dL (9.8-20.1); Bilirubin, Total 0.4 mg/dL (0.2-1.2); Calc. Creatinine Clearance 28 mL/min (70-130); Calcium 6.7 mg/dL (7.8-10.44); Carbon Dioxide 26 mmol/L (23-31); Chloride 103 mmol/L (98-107); Globulin 2.9 g/dL (2.4-3.5); Glucose 95 mg/dL (80-115); Potassium 3.6 mmol/L (3.5-5.1); Protein, Total 5.1 g/dL (5.8-8.1); Sodium 138 mmol/L (136-145)
--- NOTE | 2020-10-31 17:25 | PRG ---
DATE OF SERVICE: 10/31/2020 SUBJECTIVE: Ms. Munoz feels fine this morning. She was in dialysis. She denies having any nausea or vomiting. She is tolerating clear liquids this morning without signs of any further bleeding since endoscopy yesterday. OBJECTIVE: VITAL SIGNS: Temperature is 98.3, blood pressure 142/83, pulse of 102. GENERAL: She is alert, conversant without distress. HEENT: Shows anicteric sclerae. CV: Shows normal S1 and S2. Regular rate and rhythm. CHEST: Shows breath sounds clear to auscultation. ABDOMEN: Soft. No distention. No tympany. No tenderness. She has active bowel sounds. EXTREMITIES: Show no edema. LABORATORY DATA: Hemoglobin this morning was 10.5, check-in hemodialysis, which was the same as last night. She has had 3 units of red blood cell transfusion. ASSESSMENT: 1. Upper gastrointestinal bleed from duodenal source, presumably from previous biopsy site done on 10/18/2020. Bleeding was controlled with hemoclip placement last night. No signs of bleeding since. Blood count remained stable with hemoglobin 10.5. 2. Chronic diarrhea with negative stool studies for any infectious process and no evidence of colitis or microscopic colitis on colonoscopy from recent admission. Small-bowel biopsy was also normal. Etiology is not known at this point. 3. Anemia from gastrointestinal blood loss, stable after 3 units of RBC transfusion. 4. Lupus nephritis, on hemodialysis. 5. Atrial fibrillation, rate control. RECOMMENDATION: 1. Advance diet. 2. Continue to monitor for any recurrent bleed. 3. Continue pantoprazole 40 mg daily. 4. For diarrhea, we will start on bile acid sequestrant colestipol 1 g p.o. b.i.d. a.c. 5. We will follow. Job ID: [id number]
[2020-10-31] MEDS ORDERED: traMADol HCl 50 MG TAB PO PRN (17:39)
--- NOTE | 2020-10-31 17:54 | PDOC.HOSPP ---
- Subjective Encounter Date: 10/31/20 Encounter Time: 16:00 Subjective: pt up in bed no complains - Objective Vital Signs & Weight: Vital Signs (12 hours) Temp Pulse Resp BP Pulse Ox 10/31/20 16:05 99.6 F 102 H 16 142/69 H 96 10/31/20 12:45 98.0 F 88 16 145/81 H 100 10/31/20 07:40 99 10/31/20 07:35 98.3 F 102 H 16 142/83 H 99 Weight Weight 119 lb Most Recent Monitor Data Heart Rate from ECG 95 NIBP 151/92 NIBP BP-Mean 111 Respiration from ECG 21 SpO2 99 I&O: 10/30/20 10/31/20 11/01/20 06:59 06:59 06:59 Output Total 100 Balance -100 Result Diagrams: 10/31/20 15:24 10/31/20 15:24 Additional Labs: Accuchecks 10/31/20 10/31/20 10/31/20 13:16 05:41 00:21 POC Glucose 67 L 75 78 Hospitalist ROS - Review of Systems Cardiovascular: denies: chest pain, palpitations, orthopnea, paroxysmal noc. dyspnea, edema, light headedness, other Gastrointestinal: denies: nausea, vomiting, abdominal pain, diarrhea, constipation, melena, hematochezia, other Genitourinary: denies: dysuria, frequency, incontinence, hematuria, retention, other - Medication Medications: Active Medications Generic Name Dose Route Start Last Admin Trade Name Freq PRN Reason Stop Dose Admin Colestipol HCl 1 gm 10/31/20 17:00 10/31/20 16:44 Colestipol Hcl 1 Gm Tab PO 1 gm 0800,1700 SAMMIE Administration Diphenhydramine HCl 25 mg 10/30/20 23:15 10/31/20 07:27 Diphenhydramine 25 Mg Cap PO 10/31/20 01:30 25 mg NOW SAMMIE Administration Sodium Chloride 1,000 mls @ 75 mls/hr 10/30/20 15:00 10/31/20 07:28 Normal Saline 0.9% IV 1,000 mls .[id number] SAMMIE Administration Hospitalist Exam Vitals: Vital Signs (12 hours) Temp Pulse Resp BP Pulse Ox 10/31/20 16:05 99.6 F 102 H 16 142/69 H 96 10/31/20 12:45 98.0 F 88 16 145/81 H 100 10/31/20 07:40 99 10/31/20 07:35 98.3 F 102 H 16 142/83 H 99 Weight Weight 119 lb Most Recent Monitor Data Heart Rate from ECG 95 NIBP 151/92 NIBP BP-Mean 111 Respiration from ECG 21 SpO2 99 Heart: RRR, no murmur Respiratory: no wheezes, no rales Gastrointestinal: soft, non-tender, normal bowel sounds Extremities: 1+ LE edema Hosp A/P (1) Atrial fibrillation Code(s): I48.91 - UNSPECIFIED ATRIAL FIBRILLATION Status: Acute (2) Upper GI bleed Code(s): K92.2 - GASTROINTESTINAL HEMORRHAGE, UNSPECIFIED Status: Acute (3) End stage renal disease on dialysis Code(s): N18.6 - END STAGE RENAL DISEASE; Z99.2 - DEPENDENCE ON RENAL DIALYSIS Status: Acute (4) Seizure disorder Code(s): G40.909 - EPILEPSY, UNSP, NOT INTRACTABLE, WITHOUT STATUS EPILEPTICUS Status: Acute (5) Hypertension Code(s): I10 - ESSENTIAL (PRIMARY) HYPERTENSION Status: Chronic - Plan Patient underwent EGD which indicated mucosal lesion at the junction between the first and the second portion of the duodenum. Epinephrine was injected and hemoclips were placed. Patient currently on Cardizem drip increased rate to 15 for uncontrolled rate
[2020-10-31] MEDS: carBAMazepine 100 mg Chewable Tablet PO SCH (21:23)
[2020-10-31] MEDS: Carvedilol 25 MG TAB PO SCH (21:23)
[2020-10-31] MEDS: levETIRAcetam 500 MG TAB PO SCH (21:23)
[2020-10-31] MEDS: diphenhydrAMINE 25 MG CAP PO PRN (21:24)
[2020-10-31] MEDS: Silver Sulfadiazine 50 GM TUBE TOP SCH (21:24)
[2020-11-01] MEDS: diphenhydrAMINE 25 MG CAP PO PRN ×2 (03:00→20:26)
[2020-11-01] MEDS ORDERED: Loperamide HCl 2 MG CAP PO SCH (07:30)
[2020-11-01] MEDS: Sodium Chloride 0.9% 1,000 ML IV SCH (07:38)
[2020-11-01] MEDS: levETIRAcetam 500 MG TAB PO SCH ×2 (08:58→20:24)
[2020-11-01] MEDS: Carvedilol 25 MG TAB PO SCH ×2 (08:58→20:24)
[2020-11-01] MEDS: carBAMazepine 100 mg Chewable Tablet PO SCH ×2 (08:59→20:23)
[2020-11-01] MEDS ORDERED: Metamucil PACK PO SCH (09:00)
[2020-11-01] MEDS ORDERED: Nystatin Powder 15 GM BOT TOP PRN (09:08)
[2020-11-01] MEDS: Silver Sulfadiazine 50 GM TUBE TOP SCH ×2 (10:46→20:25)
--- NOTE | 2020-11-01 11:43 | PRG ---
DATE OF SERVICE: 11/01/2020 SUBJECTIVE: The patient is doing well today. She is having no diarrhea. She is having no abdominal pain. No nausea or vomiting. She is tolerating a more regular diet. OBJECTIVE: VITAL SIGNS: Temperature 98.5, pulse 68, respiratory rate 18, and blood pressure 142/85. CHEST: Clear. CARDIOVASCULAR: Regular rate and rhythm. ABDOMEN: Soft, nontender without organomegaly or masses. LABORATORY DATA: Show a white blood cell count of 6.3, hemoglobin 10.2, hematocrit 30.4. Glucose of 97. ASSESSMENT: 1. Chronic diarrhea - none today, on colestipol. 2. Anemia, secondary to gastrointestinal blood loss from biopsy site. 3. Lupus nephritis. 4. Atrial fibrillation. RECOMMENDATIONS: 1. Continue to advance diet. 2. Continue pantoprazole. 3. Continue colestipol. Job ID: [id number]
[2020-11-01] MEDS ORDERED: traZODone HCl 50 MG TAB PO PRN (13:53)
[2020-11-01] MEDS ORDERED: Melatonin 3 MG TAB PO PRN (13:53)
[2020-11-01 16:47] LABS: Bilirubin Negative (Negative); Blood, Urine 2+ (Negative); Clarity Turbid (Clear); Glucose, Urine (Dipstick) Normal (Negative); Ketone, Urine Negative (Negative); Leukocyte 500 Leu/uL (Negative); Nitrite Negative (Negative); Protein, Urine (Dipstick) 200 mg/dL (Neg-Trace); RBC/HPF 21-50 HPF (0-3); Specific Gravity, Urine 1.013 (1.002-1.036); Urobilinogen Normal mg/dL (Less than 2); WBC/HPF Greater than 50 HPF (0-3); pH, Urine 7.5 (5.0-9.0)
[2020-11-01 16:48] LABS: Bacteria/HPF 1+ HPF (None Seen)
[2020-11-01 16:49] LABS: Urine Culture Reflex No No
--- NOTE | 2020-11-01 17:20 | PDOC.HOSPP ---
- Subjective Encounter Date: 11/01/20 Encounter Time: 10:30 Subjective: pt up in bed no complains - Objective Vital Signs & Weight: Vital Signs (12 hours) Temp Pulse Resp BP BP Pulse Ox 11/01/20 15:06 98.7 F 74 20 155/75 H 97 11/01/20 11:17 68 18 96 11/01/20 11:14 98.5 F 73 17 142/85 H 98 11/01/20 08:58 77 140/98 H 11/01/20 07:40 98.7 F 79 18 154/70 H 100 Weight Admit Weight 119 lb Weight 119 lb Most Recent Monitor Data Heart Rate from ECG 95 NIBP 151/92 NIBP BP-Mean 111 Respiration from ECG 21 SpO2 99 I&O: 10/31/20 11/01/20 11/02/20 06:59 06:59 06:59 Intake Total 800 825 Output Total 100 Balance -100 800 825 Result Diagrams: 10/31/20 15:24 10/31/20 15:24 Additional Labs: Accuchecks 11/01/20 10/31/20 10/31/20 05:58 20:36 18:39 POC Glucose 97 103 H 104 H Hospitalist ROS - Review of Systems Respiratory: denies: cough, dry, shortness of breath, hemoptysis, SOB with excertion, pleuritic pain, sputum, wheezing, other Cardiovascular: denies: chest pain, palpitations, orthopnea, paroxysmal noc. dyspnea, edema, light headedness, other Gastrointestinal: denies: nausea, vomiting, abdominal pain, diarrhea, constipation, melena, hematochezia, other - Medication Medications: Active Medications Generic Name Dose Route Start Last Admin Trade Name Freq PRN Reason Stop Dose Admin Albuterol/Ipratropium 3 ml 10/31/20 00:27 11/01/20 11:17 Ipratropium/Albuterol Sulfate 3 Ml Neb NEB 3 ml Q4H PRN Administration SOB &/or Wheezing Albuterol/Ipratropium 3 ml 10/31/20 21:00 10/31/20 18:54 Ipratropium/Albuterol Sulfate 3 Ml Neb NEB 3 ml HS SAMMIE Administration Carbamazepine 200 mg 10/31/20 21:00 11/01/20 08:59 Carbamazepine 100 Mg Chewable Tablet PO 200 mg BID SAMMIE Administration Carvedilol 25 mg 10/31/20 21:00 11/01/20 08:58 Carvedilol 25 Mg Tab PO 25 mg BID SAMMIE Administration Colestipol HCl 1 gm 10/31/20 17:00 11/01/20 16:18 Colestipol Hcl 1 Gm Tab PO 1 gm 0800,1700 SAMMIE Administration Diltiazem HCl 240 mg 11/01/20 09:00 11/01/20 08:58 Diltiazem Hcl Cd 240 Mg Capsule PO 240 mg DAILY SAMMIE Administration Diphenhydramine HCl 25 mg 10/30/20 23:15 10/31/20 07:27 Diphenhydramine 25 Mg Cap PO 10/31/20 01:30 25 mg NOW SAMMIE Administration Diphenhydramine HCl 25 mg 10/30/20 23:07 11/01/20 03:00 Diphenhydramine 25 Mg Cap PO 25 mg Q6H PRN Administration Itching & Insomnia Pantoprazole Sodium 80 mg/ 100 mls @ 10 mls/hr 10/30/20 11:00 11/01/20 10:07 Miscellaneous Medication 1 IVPB 100 mls each/ Sodium Chloride INF SAMMIE Administration Levetiracetam 1,000 mg 10/31/20 21:00 11/01/20 08:58 Levetiracetam 500 Mg Tab PO 1,000 mg BID SAMMIE Administration Nystatin 1 gm 11/01/20 09:08 11/01/20 16:07 Nystatin Powder 15 Gm Bot TOP 1 each BID PRN Administration Topical Irritations Silver Sulfadiazine 1 gm 10/31/20 21:00 11/01/20 10:46 Silver Sulfadiazine 50 Gm Tube TOP 1 each BID SAMMIE Administration Sodium Chloride 10 ml 10/31/20 21:00 11/01/20 09:00 Flush - Normal Saline 10 Ml Syringe IVF Not Given Q12HR SAMMIE Tramadol HCl 50 mg 10/31/20 17:39 11/01/20 10:46 Tramadol Hcl 50 Mg Tab PO 50 mg Q8H PRN Administration Pain Hospitalist Exam Vitals: Vital Signs (12 hours) Temp Pulse Resp BP BP Pulse Ox 11/01/20 15:06 98.7 F 74 20 155/75 H 97 11/01/20 11:17 68 18 96 11/01/20 11:14 98.5 F 73 17 142/85 H 98 11/01/20 08:58 77 140/98 H 11/01/20 07:40 98.7 F 79 18 154/70 H 100 Weight Admit Weight 119 lb Weight 119 lb Most Recent Monitor Data Heart Rate from ECG 95 NIBP 151/92 NIBP BP-Mean 111 Respiration from ECG 21 SpO2 99 Neck: supple Heart: no murmur, no gallops Respiratory: no wheezes, no ronchi Gastrointestinal: soft, non-tender, normal bowel sounds Extremities: 1+ LE edema Hosp A/P (1) Atrial fibrillation Code(s): I48.91 - UNSPECIFIED ATRIAL FIBRILLATION Status: Acute (2) End stage renal disease on dialysis Code(s): N18.6 - END STAGE RENAL DISEASE; Z99.2 - DEPENDENCE ON RENAL DIALYSIS Status: Acute (3) Seizure disorder Code(s): G40.909 - EPILEPSY, UNSP, NOT INTRACTABLE, WITHOUT STATUS EPILEPTICUS Status: Acute (4) Upper GI bleed Code(s): K92.2 - GASTROINTESTINAL HEMORRHAGE, UNSPECIFIED Status: Acute - Plan Patient underwent EGD which indicated mucosal lesion at the junction between the first and the second portion of the duodenum. Epinephrine was injected and hemoclips were placed. Patient currently on Cardizem drip increased rate to 15 for uncontrolled rate 2/4 patient's H&H stable. Will change IV Protonix drip to twice daily oral dosing. Patient off the Cardizem drip home meds started. Possible discharge in a.m.
[2020-11-01] MEDS ORDERED: cefTRIAXone\\ROCEPHIN 1 GM in Sodium Chloride 0.9% 100 ML IVPB SCH (18:00)
[2020-11-02 04:30] LABS: #Eosinphils 0.1 thou/uL (0.0-0.7); #Monocytes 0.2 thou/uL (0.11-0.59); #Neutrophils 2.7 thou/uL (1.40-6.50); %Basophils 0.3 % (0.0-1.0); %Eosinophils 1.8 % (0.0-10.0); %Lymphocytes 25.7 % (21.0-51.0); %Monocytes 4.6 % (0.0-10.0); %Neutrophils 67.7 % (42.0-75.0); Hemoglobin 8.1 g/dL (12.0-16.0); Mean Corpuscular HGB CONC 33.6 g/dL (32.0-36.0); Mean Corpuscular Hemoglobin 30.3 pg (27.0-31.0); Mean Corpuscular Volume 90.3 fL (78.0-98.0); Mean Platelet Volume 8.4 fL (7.4-10.4); Platelet Count 123 thou/uL (130-400); RBC Distribution Width 13.1 % (11.5-14.5); Red Blood Cell (RBC) Count 2.66 mill/uL (4.20-5.40)
[2020-11-02 04:57] LABS: Anion Gap 11 mmol/L (10-20); BUN (Urea Nitrogen) 14 mg/dL (9.8-20.1); Calc. Creatinine Clearance 16 mL/min (70-130); Calcium 6.3 mg/dL (7.8-10.44); Carbon Dioxide 26 mmol/L (23-31); Chloride 104 mmol/L (98-107); Glucose 96 mg/dL (80-115); Potassium 3.6 mmol/L (3.5-5.1); Sodium 137 mmol/L (136-145)
[2020-11-02] MEDS: carBAMazepine 100 mg Chewable Tablet PO SCH (08:02)
[2020-11-02] MEDS: levETIRAcetam 500 MG TAB PO SCH (08:03)
[2020-11-02] MEDS ORDERED: Heparin 10,000 UNITS/ 10 ML VIAL ONE (09:44)
[2020-11-02] MEDS: Silver Sulfadiazine 50 GM TUBE TOP SCH (12:04)
[2020-11-02] MEDS: Carvedilol 25 MG TAB PO SCH (12:04)
[2020-11-02] MEDS ORDERED: traMADol HCl 50 MG TAB PO PRN (12:29)
--- NOTE | 2020-11-02 13:14 | PRG ---
DATE OF SERVICE: 11/02/2020 SUBJECTIVE: The patient is feeling well, eating better. She is having no diarrhea. Yesterday, she had one bowel movement. She describes as dark, but not red. She has not had any bowel movements today. She has no abdominal pain. She tolerated diet well. OBJECTIVE: VITAL SIGNS: Temperature 97.5, pulse 111, respiratory rate 18, blood pressure 133/79. CHEST: Clear. CARDIOVASCULAR: Regular rate and rhythm. ABDOMEN: Soft, nontender without organomegaly or masses. LABORATORY DATA: Shows a hemoglobin of 8.1, this is down from 10.2 two days ago. Chemistries significant for creatinine of 3.10. ASSESSMENT: 1. Gastrointestinal bleed. Patient bled from biopsy site, which was clipped. Her hemoglobin dropped 2 points over 2 days, but she is not describing any significant active bleeding. At this point, we will just keep an eye on it and monitor her H and H. 2. Chronic diarrhea. Seems to be doing well on colestipol. 3. Lupus nephritis. 4. Atrial fibrillation. RECOMMENDATIONS: 1. Continue pantoprazole. 2. Continue colestipol. 3. Monitor H and H. Job ID: [id number]
[2020-11-02 14:03] LABS: #Eosinphils 0.1 thou/uL (0.0-0.7); #Monocytes 0.2 thou/uL (0.11-0.59); %Basophils 0.2 % (0.0-1.0); %Eosinophils 2.1 % (0.0-10.0); %Lymphocytes 23.5 % (21.0-51.0); %Monocytes 4.6 % (0.0-10.0); %Neutrophils 69.6 % (42.0-75.0); Hemoglobin 9.1 g/dL (12.0-16.0); Mean Corpuscular HGB CONC 33.5 g/dL (32.0-36.0); Mean Corpuscular Hemoglobin 30.2 pg (27.0-31.0); Mean Corpuscular Volume 90.1 fL (78.0-98.0); Mean Platelet Volume 8.2 fL (7.4-10.4); Platelet Count 139 thou/uL (130-400); RBC Distribution Width 13.3 % (11.5-14.5); Red Blood Cell (RBC) Count 3.02 mill/uL (4.20-5.40); White Blood Cell (WBC) Count 4.4 thou/uL (4.8-10.8)
[2020-11-02 15:32] VITALS: BP 116/67; TEMP 97.6
--- NOTE | 2020-11-02 18:08 | PDOC.DS.DS ---
Provider Date of Admission: 10/30/20 11:21 Date of Discharge: 11/02/20 Admitting Provider: Gretchen Lemon MD Primary Care Physician: Raghav Mina MD Course Hospital Course: patient is a very pleasant 60-year-old female who initially presented to the hospital with complaints of hematochezia. Patient at this time underwent an RBC scan which was positive. RBC scan indicated active GI bleed in the left upper quadrant. she underwent a EGD which indicated active bleeding mucosal lesion at the junction between the first and second portion of the duodenum. Patient recently had a biopsy done last week. With active mucosal bleeding was injected with epinephrine and hemoclips were placed. Patient's H&H continued to be stabl e. She tolerated her diet and was discharged home. I did speak with GI who stated that patient should be okay to start her aspirin in couple days. Patient does have a history of atrial fibrillation unable to get on anticoagulation. I did recommend patient following up with her oxygen therapy technician for a watchman's procedure. GI put patient on Colestid. Patient has been having diarrhea on and off. I have told her to take it every other day and also to stop if she does not have a bowel movement for 2 or 3 days Lab Results: 11/02/20 13:58 11/02/20 03:58 Abnormal Lab Results - Last 48 hrs 11/01/20 16:12: Urine Clarity Turbid A, Urine Protein 200 A, Urine Blood 2+ A, Ur Leukocyte Esterase 500 A, Urine RBC 21-50 A, Urine WBC Greater than 50 A, Ur Squamous Epith Cells 7-10 A, Urine Bacteria 1+ A 11/02/20 03:58: Creatinine 3.10 H, Calcium 6.3 L 11/02/20 03:58: WBC 4.0 L, RBC 2.66 L, Hgb 8.1 L, Hct 24.0 L, Plt Count 123 L, Lymphocytes # 1.0 L 11/02/20 13:58: WBC 4.4 L, RBC 3.02 L, Hgb 9.1 L, Hct 27.2 L, Lymphocytes # 1.0 L Microbiology - Entire Visit 11/01/20 16:12 Urine clean catch Urine Culture - Final 10/30/20 17:32 Stool - Pending Stool Occult Blood ([facility]IL[facility]) - Final Vitals: Vital Signs (12 hours) Temp Pulse Resp BP Pulse Ox 11/02/20 15:30 97.6 F 93 17 116/67 99 11/02/20 12:01 97.5 F L 111 H 18 133/79 98 11/02/20 07:54 98.1 F 107 H 18 137/92 H 97 Weight Admit Weight 119 lb Weight 119 lb Most Recent Monitor Data Heart Rate from ECG 95 NIBP 151/92 NIBP BP-Mean 111 Respiration from ECG 21 SpO2 99 Physical Exam: The patient was seen and examined on the day of discharge. Problem (1) Atrial fibrillation Code(s): I48.91 - UNSPECIFIED ATRIAL FIBRILLATION Status: Acute (2) End stage renal disease on dialysis Code(s): N18.6 - END STAGE RENAL DISEASE; Z99.2 - DEPENDENCE ON RENAL DIALYSIS Status: Acute (3) Seizure disorder Code(s): G40.909 - EPILEPSY, UNSP, NOT INTRACTABLE, WITHOUT STATUS EPILEPTICUS Status: Acute (4) Upper GI bleed Code(s): K92.2 - GASTROINTESTINAL HEMORRHAGE, UNSPECIFIED Status: Acute Plan Prescriptions: Colestipol HCl [Colestid] 1 gm PO BID #60 tab Home Medications: Medication Instructions Recorded Confirmed Type Aspirin Chewable [Aspirin Chewable 81 mg PO DAILY 10/21/13 10/30/20 History Tablet] Carvedilol [Coreg] 25 mg PO BID 10/21/13 10/30/20 History carBAMazepine [Tegretol] 200 mg PO BID 10/21/13 10/30/20 History Levetiracetam [levETIRAcetam] 1,000 mg PO BID 10/14/20 10/30/20 History traMADol HCl [Tramadol HCl] 50 mg PO Q8HR PRN 10/14/20 10/30/20 History Ipratropium/Albuterol Sulfate 3 ml NEB HS 10/15/20 10/30/20 History [DuoNeb] Pantoprazole [Protonix] 40 mg PO DAILY 30 Days #30 tab 10/23/20 10/30/20 Rx Psyllium Seed (With Sugar) 1 pk PO DAILY 30 Days #30 pk 10/23/20 10/30/20 Rx [Metamucil Packet] Silver Sulfadiazine [Silvadene 1 gm TOP BID 15 Days #1 tube 10/23/20 10/30/20 Rx Cream] Diltiazem HCl [Cardizem CD] 240 mg PO DAILY 30 Days #30 cap 10/25/20 10/30/20 Rx diphenhydrAMINE HCl [Benadryl 25 mg PO Q6HR PRN 10/30/20 10/30/20 History Allergy] Colestipol HCl [Colestid] 1 gm PO BID #60 tab 11/02/20 Rx Allergies: No Known Allergies Allergy (Verified 10/25/13 19:01) Discharge Instructions:: start aspirin on Thursday. please do take colestid twice a day every other day but if you do not have bowel movement stop it. Activity:: Activity as Tolerated Nourishment:: Heart Healthy Diet, Renal Diet Referrals: [facility] [Outside] (Currently receiving home health services.) Wilder Hernandez MD [Active] - 2-3 Weeks (Please follow up with GI in 2-3 weeks. Call the office to schedule an appointment.) Raghav Mina MD [Primary Care Provider] - 7 Days (please follow up with your pc p in 7days. Call the office to schedule an appointment.) Disposition: HOME Quality CORE MEASURES:: N/A
--- NOTE | 2020-11-03 16:46 | EKG ---
Test Reason : Blood Pressure : / mmHG Vent. Rate : 121 BPM Atrial Rate : 125 BPM P-R Int : 000 ms QRS Dur : 066 ms QT Int : 352 ms P-R-T Axes : 000 050 056 degrees QTc Int : 499 ms Atrial fibrillation with rapid ventricular response Septal infarct , age undetermined Abnormal ECG Confirmed by BARBARA DIAZ, GISELE Esquivel ([id number]), editor greeting card CHASTITY VAN ([id number]) on 11/03/2020 4:46:12 PM Referred By: Confirmed By:GISELE JIMENEZ MD
== END 2020-11-02 16:49 | disposition home or self-care (01) | DRG 919 ==
LOC: ERS 10:08 → ERHOLD 11:21 → 2NO 22:05
PROVIDERS: ADMIT Internal Medicine; ATTEND Internal Medicine
PROC: 0W3P8ZZ Control Bleeding in Gastrointestinal Tract, Via Natural or Artificial Opening Endoscopic (ICD-10-PCS; principal; 2020-10-30)
PROC: 0DJD8ZZ Inspection of Lower Intestinal Tract, Via Natural or Artificial Opening Endoscopic (ICD-10-PCS; 2020-10-30)
PROC: 30233N1 Transfusion of Nonautologous Red Blood Cells into Peripheral Vein, Percutaneous Approach (ICD-10-PCS; 2020-10-30)
DX: K91.840 Postprocedural hemorrhage of a digestive system organ or structure following a digestive system procedure (principal); N18.6 End stage renal disease; R57.8 Other shock; N17.9 Acute kidney failure, unspecified; E87.2 Acidosis; D62 Acute posthemorrhagic anemia; I12.0 Hypertensive chronic kidney disease with stage 5 chronic kidney disease or end stage renal disease; G40.909 Epilepsy, unspecified, not intractable, without status epilepticus; Z20.822 Contact with and (suspected) exposure to COVID-19; I48.91 Unspecified atrial fibrillation; R73.9 Hyperglycemia, unspecified; K52.9 Noninfective gastroenteritis and colitis, unspecified; M32.14 Glomerular disease in systemic lupus erythematosus; Y83.8 Other surgical procedures as the cause of abnormal reaction of the patient, or of later complication, without mention of misadventure at the time of the procedure; Z99.2 Dependence on renal dialysis
CPT/HCPCS: 0240U; 36415; 36416; 36430; 51701; 78278; 80048; 80053; 81001; 81003; 81015; 82274; 83036; 83605; 85025; 86850; 86900; 86901; 87086; 90935; 93005; 96365; 96366; 96368; 96374; 96375; A9604; C9113; G0257; J0171; J0696; J1644; J1953; J2250; J2704; J3490; J7620; P9016; Q0163

== ENCOUNTER 2020-11-07 07:35 | Observation (INO) | payer OTHER ==
[2020-11-07 07:56] LABS: #Lymphocytes 1.4 thou/uL (1.20-3.40); #Monocytes 0.4 thou/uL (0.11-0.59); #Neutrophils 3.9 thou/uL (1.40-6.50); %Basophils 0.5 % (0.0-1.0); %Eosinophils 0.8 % (0.0-10.0); %Lymphocytes 24.9 % (21.0-51.0); %Monocytes 6.3 % (0.0-10.0); %Neutrophils 67.6 % (42.0-75.0); Hemoglobin 9.4 g/dL (12.0-16.0); Mean Corpuscular HGB CONC 33.1 g/dL (32.0-36.0); Mean Corpuscular Hemoglobin 30.3 pg (27.0-31.0); Mean Corpuscular Volume 91.7 fL (78.0-98.0); Mean Platelet Volume 7.9 fL (7.4-10.4); Platelet Count 202 thou/uL (130-400); RBC Distribution Width 13.5 % (11.5-14.5); Red Blood Cell (RBC) Count 3.08 mill/uL (4.20-5.40); White Blood Cell (WBC) Count 5.7 thou/uL (4.8-10.8)
--- NOTE | 2020-11-07 08:11 | CT ---
CT BRAIN NONCONTRAST: DATE: 11/07/2020 HISTORY: 60-year-old female with strokelike symptoms: Dysarthria, dizziness, and unsteady gait. Dr. Reilly gave verbal report for this level [address] Rodgers of the ER at 8:01 AM 11/07/2020 COMPARISON: No prior CTs of brain. The only prior cross-sectional imaging of the head is a single MRI of brain with and without contrast of 09/27/2003 FINDINGS: There is a an approximately 2.5 x 2.5 cm cystic lesion at the left medial anterior temporal lobe. Thi s cystic lesion has not changed in size since 2002. The previous MRI demonstrated enhancement at the medial solid components of this mass, indicating neoplasm. The current CT shows multifocal coarse calcifications along the medial portions of this lesion. Without prior CT, it is unknown whether or not there were calcifications before. There is no evidence of acute intra-axial or extra-axial hemorrhage. There is no midline shift or any other mass effect. There is no extra-axial fluid collection. There is no evidence of obstructive hydrocephalus. Calvarium is intact. There is diffuse brain parenchymal volume loss. There are low att enuation areas in the white matter. These are nonspecific, but in a patient of this age, they are probably chronic ischemic white matter changes due to microvascular atherosclerosis. IMPRESSION: 1) No acute intracranial findings. 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 3) involutional changes and chronic ischemic white matter changes.
--- NOTE | 2020-11-07 08:31 | RAD ---
Exam: Chest one view HISTORY:Mental status. Stroke like symptoms. Weakness. Comparison: 10/17/2020 FINDINGS: Cardiac silhouette:Normal cardiac silhouette. Stable left-sided transvenous muscular dialysis cathete r Aorta: Unremarkable Pulmonary vessels: Normal Costophrenic angles: Bilateral pleural effusions LUNGS: Right basilar opacity Pneumothorax: None Osseous abnormalities: None IMPRESSION: Volume overload with bibasilar pleural and parenchymal changes
[2020-11-07 08:41] LABS: CKMB 0.5 ng/mL (0-6.6)
[2020-11-07 08:55] LABS: ALT (SGPT) 13 U/L (8-55); AST (SGOT) 23 U/L (5-34); Albumin 2.4 g/dL (3.4-4.8); Alkaline Phosphatase 82 U/L (40-110); Anion Gap 12 mmol/L (10-20); BUN (Urea Nitrogen) 16 mg/dL (9.8-20.1); Bilirubin, Total 0.2 mg/dL (0.2-1.2); CK (CPK) 43 U/L (29-168); Calc. Creatinine Clearance 0 mL/min (70-130); Calcium 6.9 mg/dL (7.8-10.44); Carbon Dioxide 28 mmol/L (23-31); Chloride 101 mmol/L (98-107); Globulin 3.9 g/dL (2.4-3.5); Glucose 88 mg/dL (80-115); Potassium 4.4 mmol/L (3.5-5.1); Protein, Total 6.3 g/dL (5.8-8.1); Sodium 137 mmol/L (136-145)
[2020-11-07] MEDS ORDERED: Aspirin Chewable 81 MG TAB ONE (09:46)
[2020-11-07] MEDS ORDERED: diphenhydrAMINE 25 MG CAP ONE (10:25)
[2020-11-07] MEDS ORDERED: hydrALAZINE 20 MG/ML VIAL SLOW IVP PRN (10:43)
[2020-11-07] MEDS ORDERED: Acetaminophen 325 MG TAB PO PRN (10:43)
--- NOTE | 2020-11-07 11:44 | MRI ---
MRI BRAIN NONCONTRAST: DATE: 11/07/2020 HISTORY: 60-year-old female with TIA COMPARISON: MRI with and without contrast of 09/27/2003. FINDINGS: There is no obstructive hydrocephalus. There is no midline shift or any other evidence of mass effect . There is no extra-axial fluid collection. There is a new finding of moderate degree of T2-hyperintensities in the cerebral white matter and jairo, consistent with chronic ischemic white mat ter changes due to microvascular atherosclerosis. There is no evidence of recent hemorrhage or restricted diffusion. There has been no interval change in size of the mixed solid and cystic intra-axial mass at the anter ior aspect of left temporal lobe. Most of the volume of the mass is cystic. Measures approximately 1 x 2.2 x 2.5 cm, and has not changed. Gradient echo sequence demonstrates multifocal coarse calcific ations at the medial portion of this mass. Previous contrast enhanced images in 2002 demonstrated small nodular regions of enhancement in medial solid components of this tumor. Differential diagnosis is gangliocytoma versus ganglioglioma. 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 There is a minimal amount of hyperintense signal on FLAIR, which is favored to represent mil d gliosis. 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 2) moderate chronic ischemic white matter changes. 3) no acute infarction or any other acute intracranial findings.
[2020-11-07 13:07] LABS: Troponin I 0.041 ng/mL (< 0.028)
[2020-11-07 14:37] VITALS: BMI 23.5
[2020-11-07 14:55] LABS: Troponin I 0.022 ng/mL (< 0.028)
[2020-11-07] MEDS ORDERED: diphenhydrAMINE 25 MG CAP PO SCH (21:00)
[2020-11-07] MEDS: Atorvastatin Calcium 40 MG TAB PO SCH (21:50)
[2020-11-07] MEDS ORDERED: carBAMazepine 200 MG TAB PO SCH (22:30)
[2020-11-07] MEDS ORDERED: levETIRAcetam 500 MG TAB PO SCH (22:30)
--- NOTE | 2020-11-07 23:57 | PDOC.HHP ---
Hospitalist HPI Trouble taking and leg weakness History of Present Illness: Patient is 60-year-old female with PMH of A. fib, seizure, ESRD, and recent GI bleed who presents to the ED with CC of difficulty speaking and leg swelling. Patient states she started having weakness on both of her legs yesterday evening. Today around 6:00 AM she started having trouble speaking. She denies headache or dizziness. Patient was discharged from here on 11/02/2020 after she was admitted for GI bleed due to duodenal lesion. She is on aspirin for her A. fib and she was told restart it 2 days after her discharge. Allergies/Adverse Reactions: Allergy/AdvReac Type Severity Reaction Status Date / Time No Known Allergies Allergy Verified 10/25/13 19:01 Home Medications: Medication Instructions Recorded Confirmed Type Aspirin Chewable [Aspirin Chewable 81 mg PO DAILY 10/21/13 11/07/20 History Tablet] Carvedilol [Coreg] 25 mg PO BID 10/21/13 11/07/20 History Levetiracetam [levETIRAcetam] 1,000 mg PO BID 10/14/20 11/07/20 History traMADol HCl [Tramadol HCl] 50 mg PO Q8HR PRN 10/14/20 11/07/20 History Ipratropium/Albuterol Sulfate 3 ml NEB HS 10/15/20 11/07/20 History [DuoNeb] Pantoprazole [Protonix] 40 mg PO DAILY 30 Days #30 tab 10/23/20 11/07/20 Rx Silver Sulfadiazine [Silvadene 1 gm TOP BID 15 Days #1 tube 10/23/20 11/07/20 Rx Cream] Colestipol HCl [Colestid] 1 gm PO Q2D MDD Take every other 11/07/20 11/07/20 History Day Diltiazem HCl [Diltiazem ER 24 Hr] 240 mg PO DAILY 11/07/20 11/07/20 History carBAMazepine 200 mg PO BID 11/07/20 11/07/20 History Past History: PMHx:A. fib, seizure, ESRD, and recent GI bleed PSHx: LUR AV fistula FHx: Noncontributory Social: 1 glass of wine daily, never smoker, denies drug use Hospitalist HPI ROS Constitutional: denies: fever, chills Eyes: denies: vision change ENT: denies: throat swelling Respiratory: denies: shortness of breath Cardiovascular: denies: chest pain Gastrointestinal: denies: nausea, vomiting Genitourinary: denies: dysuria Skin: reports: rash Neurological: reports: weakness, change in speech Hospitalist Exam Vitals: Vital Signs (12 hours) Temp Pulse Pulse Pulse Resp BP BP 11/07/20 19:15 98.1 F 107 H 18 11/07/20 14:35 111 H 125 H 134/84 138/83 11/07/20 14:00 97.8 F 93 19 BP Pulse Ox 11/07/20 19:15 134/83 98 11/07/20 14:35 11/07/20 14:00 146/88 H Weight Weight 141 lb 6 oz General Appearance: NAD, awake alert Eye: PERRL ENT: moist mucosa Neck: supple Heart: RRR, irregular Respiratory: no wheezes, no tachypnea Respiratory - other findings: Decreased breathing on the bibasilar area Gastrointestinal: soft, non-tender, non-distended Gastrointestinal - other findings: Faint erythematous macular lesion on the epigastric area Extremities: 2+ LE edema Skin - other findings: Diffuse ecchymosis on the upper extremities Neurological: cranial nerve grossly intact, normal sensation to touch, no weakness Neurological - other findings: Mild dysarthria Musculoskeletal: normal strength Psychiatric: A&O x 3 Hospitalist Results Result Diagrams: 11/07/20 07:45 11/07/20 07:45 Lab results: Laboratory Last Values WBC 5.7 thou/uL (4.8-10.8) 11/07/20 07:45 RBC 3.08 mill/uL (4.20-5.40) L 11/07/20 07:45 Hgb 9.4 g/dL (12.0-16.0) L 11/07/20 07:45 Hct 28.3 % (36.0-47.0) L 11/07/20 07:45 MCV 91.7 fL (78.0-98.0) 11/07/20 07:45 MCH 30.3 pg (27.0-31.0) 11/07/20 07:45 MCHC 33.1 g/dL (32.0-36.0) 11/07/20 07:45 RDW 13.5 % (11.5-14.5) 11/07/20 07:45 Plt Count 202 thou/uL (130-400) 11/07/20 07:45 MPV 7.9 fL (7.4-10.4) 11/07/20 07:45 Neutrophils % 67.6 % (42.0-75.0) 11/07/20 07:45 Lymphocytes % 24.9 % (21.0-51.0) 11/07/20 07:45 Monocytes % 6.3 % (0.0-10.0) 11/07/20 07:45 Eosinophils % 0.8 % (0.0-10.0) 11/07/20 07:45 Basophils % 0.5 % (0.0-1.0) 11/07/20 07:45 Neutrophils # 3.9 thou/uL (1.40-6.50) 11/07/20 07:45 Lymphocytes # 1.4 thou/uL (1.20-3.40) 11/07/20 07:45 Monocytes # 0.4 thou/uL (0.11-0.59) 11/07/20 07:45 Eosinophils # 0.0 thou/uL (0.0-0.7) 11/07/20 07:45 Basophils # 0.0 thou/uL (0.0-0.2) 11/07/20 07:45 Sodium 137 mmol/L (136-145) 11/07/20 07:45 Potassium 4.4 mmol/L (3.5-5.1) 11/07/20 07:45 Chloride 101 mmol/L (98-107) 11/07/20 07:45 Carbon Dioxide 28 mmol/L (23-31) 11/07/20 07:45 Anion Gap 12 mmol/L (10-20) 11/07/20 07:45 BUN 16 mg/dL (9.8-20.1) 11/07/20 07:45 Creatinine 3.46 mg/dL (0.6-1.1) H 11/07/20 07:45 Estimated GFR (MDRD) 13 11/07/20 07:45 Glucose 88 mg/dL (80-115) 11/07/20 07:45 POC Glucose 85 mg/dL (70-100) 11/07/20 07:49 Calcium 6.9 mg/dL (7.8-10.44) L 11/07/20 07:45 Total Bilirubin 0.2 mg/dL (0.2-1.2) 11/07/20 07:45 AST 23 U/L (5-34) 11/07/20 07:45 ALT 13 U/L (8-55) 11/07/20 07:45 Alkaline Phosphatase 82 U/L (40-110) 11/07/20 07:45 Creatine Kinase 43 U/L (29-168) 11/07/20 07:45 CK-MB (CK-2) 0.5 ng/mL (0-6.6) 11/07/20 07:45 Troponin I 0.022 ng/mL (< 0.028) 11/07/20 14:21 Serum Total Protein 6.3 g/dL (5.8-8.1) 11/07/20 07:45 Albumin 2.4 g/dL (3.4-4.8) L 11/07/20 07:45 Globulin 3.9 g/dL (2.4-3.5) H 11/07/20 07:45 Albumin/Globulin Ratio 0.6 g/dL (1.2-2.2) L 11/07/20 07:45 Chest x-ray Status: image reviewed by me EKG Status: image reviewed by me Additional Comments: Blanca merritt Hospitalist H&P A/P (1) TIA (transient ischemic attack) Code(s): G45.9 - TRANSIENT CEREBRAL ISCHEMIC ATTACK, UNSPECIFIED Status: Acute Assessment and Plan: Patient's neuro symptoms likely from TIA. Her symptoms are significant currently improved. CT head showed no acute intracranial abnormalities. Plan: -Frequent neurochecks -MRI brain without contrast, echo, carotid Doppler -Lipid panel, Hgb A1c (2) Atrial fibrillation Code(s): I48.91 - UNSPECIFIED ATRIAL FIBRILLATION Status: Chronic Assessment and Plan: Rate controlled. She is on aspirin for anticoagulation. Plan: -cont home meds (3) End stage renal disease on dialysis Code(s): N18.6 - END STAGE RENAL DISEASE; Z99.2 - DEPENDENCE ON RENAL DIALYSIS Status: Chronic Assessment and Plan: on HD M/W/F. She has sings of volume overload. Plan: -Nephrology consulted for HD (4) Seizure disorder Code(s): G40.909 - EPILEPSY, UNSP, NOT INTRACTABLE, WITHOUT STATUS EPILEPTICUS Status: Chronic Assessment and Plan: -cont home med
[2020-11-08] MEDS ORDERED: Carvedilol 25 MG TAB PO SCH (04:45)
[2020-11-08 04:56] LABS: #Eosinphils 0.1 thou/uL (0.0-0.7); #Lymphocytes 1.3 thou/uL (1.20-3.40); #Monocytes 0.4 thou/uL (0.11-0.59); #Neutrophils 5.7 thou/uL (1.40-6.50); %Basophils 0.2 % (0.0-1.0); %Eosinophils 1.1 % (0.0-10.0); %Lymphocytes 17.5 % (21.0-51.0); %Monocytes 5.9 % (0.0-10.0); %Neutrophils 75.3 % (42.0-75.0); Hemoglobin 9.1 g/dL (12.0-16.0); Mean Corpuscular HGB CONC 32.4 g/dL (32.0-36.0); Mean Corpuscular Hemoglobin 29.7 pg (27.0-31.0); Mean Corpuscular Volume 91.7 fL (78.0-98.0); Mean Platelet Volume 7.9 fL (7.4-10.4); Platelet Count 211 thou/uL (130-400); RBC Distribution Width 13.4 % (11.5-14.5); Red Blood Cell (RBC) Count 3.08 mill/uL (4.20-5.40); White Blood Cell (WBC) Count 7.5 thou/uL (4.8-10.8)
[2020-11-08 05:16] LABS: Anion Gap 13 mmol/L (10-20); BUN (Urea Nitrogen) 20 mg/dL (9.8-20.1); Calc. Creatinine Clearance 15 mL/min (70-130); Calcium 6.8 mg/dL (7.8-10.44); Carbon Dioxide 28 mmol/L (23-31); Cardiac Risk 4.3 (Less than 4.5); Chloride 99 mmol/L (98-107); Cholesterol 167 mg/dl (< 200 Desired); Glucose 86 mg/dL (80-115); HDL Cholesterol 39 mg/dL (>60 Neg Risk); LDL Cholesterol, Calculated 101 mg/dL; Potassium 3.6 mmol/L (3.5-5.1); Sodium 136 mmol/L (136-145); Triglycerides 133 mg/dL (Less than 150)
[2020-11-08] MEDS ORDERED: Benzonatate 100 MG CAP PO PRN (08:37)
[2020-11-08] MEDS ORDERED: Bisacodyl 5 MG TAB PO PRN (08:37)
[2020-11-08] MEDS ORDERED: GUAIFENESIN SF SOLN 200 MG/10 ML UDCUP PO PRN (08:37)
[2020-11-08] MEDS ORDERED: Zolpidem Tartrate 5 MG TAB PO PRN (08:37)
[2020-11-08] MEDS ORDERED: Loperamide HCl 2 MG CAP PO PRN (08:37)
[2020-11-08] MEDS ORDERED: Ondansetron ODT 4 MG TAB PO PRN (08:37)
[2020-11-08] MEDS ORDERED: HYDROcodone/Acetaminophen 5/325 mg Tablet PO PRN (08:37)
[2020-11-08] MEDS ORDERED: traMADol HCl 50 MG TAB PO PRN (08:37)
[2020-11-08] MEDS ORDERED: Ondansetron PF 4 MG/2 ML Vial IVP PRN (08:37)
[2020-11-08] MEDS ORDERED: Cepastat Lozenges 1 LOZ PO PRN (08:37)
[2020-11-08] MEDS ORDERED: Calcium Carbonate 500 MG ChewTAB PO PRN (08:37)
[2020-11-08] MEDS ORDERED: Senokot S 8.6-50 MG TAB PO PRN (08:37)
--- NOTE | 2020-11-08 08:43 | ULT ---
BILATERAL CAROTID DUPLEX ULTRASOUND: HISTORY: TIA TECHNIQUE: Grayscale, color-flow and spectral Doppler ultrasound imaging of the extracranial carotid artery syst ems was performed bilaterally. FINDINGS: There is plaque formation in the right carotid bulb The peak systolic velocity in the right ICA measures 52 cm/s with an end-diastolic velocity of 23 cm/ s and a systolic ratio of 0.98. The peak systolic velocity in the left ICA measures 46 cm/s with an end-diastolic velocity of 17 cm/s and a systolic ratio of 0.90. Flow in both vertebral arteries remains antegrade. IMPRESSION: No evidence of hemodynamically significant stenosis in either ICA.
[2020-11-08] MEDS ORDERED: Aspirin 81 mg Enteric Coated Tablet PO SCH (09:00)
--- NOTE | 2020-11-08 11:53 | PDOC.DS.DS ---
Provider Date of Admission: 11/07/20 14:06 Date of Discharge: 11/09/20 Admitting Provider: Julisa Boykin MD Consultations: Nephrology Primary Care Physician: Raghav Mina MD Course Hospital Course: Patient is 60-year-old female with PMH of A. fib, seizure, ESRD, and recent GI bleed who presents to the ED with CC of difficulty speaking and leg swelling. Patient states she started having weakness on both of her legs yesterday evening. Today around 6:00 AM she started having trouble speaking. She denies headache or dizziness. 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 At this point patient is medically stable for discharge. Plan of care and all test result discussed with the patient's and family member. EEG showed epileptiform activity, echocardiography was unremarkable, initially patient was preferring to go to rehab so we have to keep in hospital and today she change her mind to go home with home health. Patient seen and examined bedside today. Resuscitation Status: 11/07/20 10:43 Resuscitation Status Routine Resuscitation Status: FULL: Full Resuscitation Discussed with: patient Lab Results: 11/08/20 04:33 11/08/20 04:33 Abnormal Lab Results - Last 48 hrs 11/07/20 07:45: Creatinine 3.46 H, Calcium 6.9 L, Albumin 2.4 L, Globulin 3.9 H, Albumin/Globulin Ratio 0.6 L 11/07/20 07:45: RBC 3.08 L, Hgb 9.4 L, Hct 28.3 L 11/07/20 07:45: Troponin I 0.035 H 11/07/20 12:06: Troponin I 0.041 H 11/08/20 04:33: Creatinine 3.93 H, Calcium 6.8 L 11/08/20 04:33: RBC 3.08 L, Hgb 9.1 L, Hct 28.2 L, Neutrophils % 75.3 H, Lymphocytes % 17.5 L Vitals: Vital Signs (12 hours) Temp Pulse Resp BP Pulse Ox 11/08/20 07:52 98.2 F 96 16 135/77 97 11/08/20 05:50 127 H 11/08/20 04:15 98.1 F 116 H 18 182/117 H 100 Weight Weight 141 lb 6 oz Physical Exam: The patient was seen and examined on the day of discharge. General Appearance: NAD, awake alert Eye: PERRL, anicteric sclera ENT: normocephalic atraumatic, no oropharyngeal lesions Neck: supple, symmetric, no JVD, no thyromegaly Respiratory: no wheezes, no rales, no ronchi Cardiovascular: RRR, no murmur, no gallops, no rubs Gastrointestinal: soft, non-tender, non-distended, normal bowel sounds Extremities: no cyanosis, no clubbing, no edema Skin: normal turgor, no lesions Neurological: no focal deficits Musculoskeletal: normal tone, normal strength PSYCH: normal affect, normal behavior Problem (1) TIA (transient ischemic attack) Code(s): G45.9 - TRANSIENT CEREBRAL ISCHEMIC ATTACK, UNSPECIFIED Status: Acute (2) Atrial fibrillation Code(s): I48.91 - UNSPECIFIED ATRIAL FIBRILLATION Status: Chronic Qualifiers: Atrial fibrillation type: paroxysmal Qualified Code(s): I48.0 - Paroxysmal atrial fibrillation (3) End stage renal disease on dialysis Code(s): N18.6 - END STAGE RENAL DISEASE; Z99.2 - DEPENDENCE ON RENAL DIALYSIS Status: Chronic (4) Hypertension Code(s): I10 - ESSENTIAL (PRIMARY) HYPERTENSION Status: Chronic Qualifiers: Hypertension type: essential hypertension Qualified Code(s): I10 - Essential (primary) hypertension (5) Seizure disorder Code(s): G40.909 - EPILEPSY, UNSP, NOT INTRACTABLE, WITHOUT STATUS EPILEPTICUS Status: Chronic Plan Home Medications: Medication Instructions Recorded Confirmed Type Aspirin Chewable [Aspirin Chewable 81 mg PO DAILY 10/21/13 11/07/20 History Tablet] Carvedilol [Coreg] 25 mg PO BID 10/21/13 11/07/20 History Levetiracetam [levETIRAcetam] 1,000 mg PO BID 10/14/20 11/07/20 History traMADol HCl [Tramadol HCl] 50 mg PO Q8HR PRN 10/14/20 11/07/20 History Ipratropium/Albuterol Sulfate 3 ml NEB HS 10/15/20 11/07/20 History [DuoNeb] Pantoprazole [Protonix] 40 mg PO DAILY 30 Days #30 tab 10/23/20 11/07/20 Rx Silver Sulfadiazine [Silvadene 1 gm TOP BID 15 Days #1 tube 10/23/20 11/07/20 Rx Cream] Colestipol HCl [Colestid] 1 gm PO Q2D MDD Take every other 11/07/20 11/07/20 History Day Diltiazem HCl [Diltiazem ER 24 Hr] 240 mg PO DAILY 11/07/20 11/07/20 History carBAMazepine 200 mg PO BID 11/07/20 11/07/20 History Allergies: No Known Allergies Allergy (Verified 10/25/13 19:01) Activity:: Activity as Tolerated Nourishment:: Renal Diet Therapies:: Home Health Equipment/Supplies:: Not Applicable IV Therapy:: Not Applicable Referrals: [facility] [Outside] Raghav Mina MD [Primary Care Provider] - Disposition: HOME HEALTH Quality CORE MEASURES:: N/A
[2020-11-08] MEDS: diphenhydrAMINE 25 MG CAP PO PRN ×2 (11:54→23:43)
--- NOTE | 2020-11-08 12:03 | PDOC.HOSPP ---
- Subjective Encounter Date: 11/08/20 Encounter Time: 07:30 Subjective: Patient seen and examined. No new complaints. No overnight events - Objective Vital Signs & Weight: Vital Signs (12 hours) Temp Pulse Resp BP Pulse Ox 11/08/20 07:52 98.2 F 96 16 135/77 97 11/08/20 05:50 127 H 11/08/20 04:15 98.1 F 116 H 18 182/117 H 100 Weight Weight 141 lb 6 oz Result Diagrams: 11/08/20 04:33 11/08/20 04:33 Radiology Reviewed by me: Yes EKG Reviewed by me: Yes Hospitalist ROS - Review of Systems ENT: denies: ear pain, ear discharge, nose pain, nose discharge, nose congestion, mouth pain, mouth swelling, throat pain, throat swelling, other Respiratory: denies: cough, dry, shortness of breath, hemoptysis, SOB with excertion, pleuritic pain, sputum, wheezing, other Cardiovascular: denies: chest pain, palpitations, orthopnea, paroxysmal noc. dyspnea, edema, light headedness, other Gastrointestinal: denies: nausea, vomiting, abdominal pain, diarrhea, constipation, melena, hematochezia, other Genitourinary: denies: dysuria, frequency, incontinence, hematuria, retention, other Musculoskeletal: denies: neck pain, shoulder pain, arm pain, back pain, hand pain, leg pain, foot pain, other - Medication Medications: Active Medications Generic Name Dose Route Start Last Admin Trade Name Freq PRN Reason Stop Dose Admin Atorvastatin Calcium 40 mg 11/07/20 21:00 11/07/20 21:50 Atorvastatin Calcium 40 Mg Tab PO 40 mg HS SAMMIE Administration Diphenhydramine HCl 25 mg 11/08/20 07:50 11/08/20 11:54 Diphenhydramine 25 Mg Cap PO 25 mg Q12H PRN Administration Itching Sodium Chloride 10 ml 11/07/20 10:43 11/07/20 21:50 Flush - Normal Saline 10 Ml Syringe IVF 10 ml PRN PRN Administration Saline Flush Hospitalist Exam Vitals: Vital Signs (12 hours) Temp Pulse Resp BP Pulse Ox 11/08/20 07:52 98.2 F 96 16 135/77 97 11/08/20 05:50 127 H 11/08/20 04:15 98.1 F 116 H 18 182/117 H 100 Weight Weight 141 lb 6 oz General Appearance: NAD, awake alert Eye: PERRL, anicteric sclera ENT: normocephalic atraumatic, no oropharyngeal lesions Neck: supple, symmetric, no JVD, no thyromegaly Heart: no murmur, no gallops, no rubs Respiratory: no wheezes, no rales, no ronchi Gastrointestinal: soft, non-tender, non-distended, normal bowel sounds Extremities: no clubbing, no edema Skin: normal turgor, no lesions Neurological: no focal deficits Musculoskeletal: normal tone, normal strength Psychiatric: normal affect, normal behavior Hosp A/P (1) TIA (transient ischemic attack) Code(s): G45.9 - TRANSIENT CEREBRAL ISCHEMIC ATTACK, UNSPECIFIED Status: Acute (2) Atrial fibrillation Code(s): I48.91 - UNSPECIFIED ATRIAL FIBRILLATION Status: Chronic Qualifiers: Atrial fibrillation type: paroxysmal Qualified Code(s): I48.0 - Paroxysmal atrial fibrillation (3) End stage renal disease on dialysis Code(s): N18.6 - END STAGE RENAL DISEASE; Z99.2 - DEPENDENCE ON RENAL DIALYSIS Status: Chronic (4) Hypertension Code(s): I10 - ESSENTIAL (PRIMARY) HYPERTENSION Status: Chronic Qualifiers: Hypertension type: essential hypertension Qualified Code(s): I10 - Essential (primary) hypertension (5) Seizure disorder Code(s): G40.909 - EPILEPSY, UNSP, NOT INTRACTABLE, WITHOUT STATUS EPILEPTICUS Status: Chronic - Plan old records reviewed/req, plan discussed w/ family, PT/OT, outreach and education social worker Echocardiography pending EEG pending Neurology consulted If neurology okay then will consider discharge later on today We will try to arrange home health if her insurance approves, Plan of care and test result discussed with the patient and her daughter bedside
--- NOTE | 2020-11-08 12:37 | CON ---
NEUROLOGY CONSULTATION DATE OF CONSULTATION: 11/08/2020 REASON FOR CONSULTATION: Slurred speech/aphasia and lower extremity weakness. HISTORY OF PRESENT ILLNESS: Ms. Munoz is a 60-year-old female with medical history significant for atrial fibrillation, seizure disorder, end-stage renal disease, and recent GI bleed, presented to the hospital with difficulty speaking and lower extremity weakness associated with swelling. Per the patient, she started having the weakness of her lower extremity on 11/06/2020, and on the morning of 11/07/2020, around 6:00 a.m., she started having trouble speaking. The patient denies nausea, vomiting, headache, chest pain, abdominal pain, recent illness, or recent exposure for COVID-19. She also denies focal numbness or focal paresthesias, double vision, loss of vision, vertigo, or dizziness or abnormal involuntary movements or loss of consciousness associated with the stroke-like symptoms. The patient was recently discharged on 11/02/2020, after she was admitted for GI bleed due to duodenal lesion. She is on aspirin for her atrial fibrillation and was told to restart it 2 days after her discharge. REVIEW OF SYSTEMS: All systems reviewed and were negative except the pertinent positives and negatives mentioned in the HPI. PAST MEDICAL HISTORY: 1. Atrial fibrillation. 2. Seizure disorder. 3. End-stage renal disease. 4. Recent GI bleed. PAST SURGICAL HISTORY: S/P AV fistula. FAMILY HISTORY: No history of seizure disorder. SOCIAL HISTORY: One glass of wine daily. She denies smoking or illegal drug use. Allergies/Adverse Reactions: Allergy/AdvReac Type Severity Reaction Status Date / Time No Known Allergies Allergy Verified 10/25/13 19:01 Home Medications: Medication Instructions Recorded Confirmed Type Aspirin Chewable [Aspirin Chewable 81 mg PO DAILY 10/21/13 11/07/20 History Tablet] Carvedilol [Coreg] 25 mg PO BID 10/21/13 11/07/20 History Levetiracetam [levETIRAcetam] 1,000 mg PO BID 10/14/20 11/07/20 History traMADol HCl [Tramadol HCl] 50 mg PO Q8HR PRN 10/14/20 11/07/20 History Ipratropium/Albuterol Sulfate 3 ml NEB HS 10/15/20 11/07/20 History [DuoNeb] Pantoprazole [Protonix] 40 mg PO DAILY 30 Days #30 tab 10/23/20 11/07/20 Rx Silver Sulfadiazine [Silvadene 1 gm TOP BID 15 Days #1 tube 10/23/20 11/07/20 Rx Cream] Colestipol HCl [Colestid] 1 gm PO Q2D MDD Take every other 11/07/20 11/07/20 History Day Diltiazem HCl [Diltiazem ER 24 Hr] 240 mg PO DAILY 11/07/20 11/07/20 History carBAMazepine 200 mg PO BID 11/07/20 11/07/20 History Vitals: Vital Signs (12 hours) Temp Pulse Pulse Pulse Resp BP BP 11/07/20 19:15 98.1 F 107 H 18 11/07/20 14:35 111 H 125 H 134/84 138/83 11/07/20 14:00 97.8 F 93 19 BP Pulse Ox 11/07/20 19:15 134/83 98 11/07/20 14:35 11/07/20 14:00 146/88 H Weight Weight 141 lb 6 oz PHYSICAL EXAMINATION: General Appearance: NAD, awake alert Eye: PERRL ENT: moist mucosa Neck: supple Heart: RRR, irregular Respiratory: no wheezes, no tachypnea Respiratory - other findings: Decreased breathing on the bibasilar area Gastrointestinal: soft, non-tender, non-distended Extremities: 2+ LE edema Skin - other findings: Diffuse ecchymosis on the upper extremities Neurological: Mental status, the patient is alert and oriented to person, place, and time. She does have dysarthria. Cranial nerves II through XII intact, except XI, X mild dysarthria. Motor, muscle tone, and bulk are normal. Moving all four extremities, upper extremity more than lower extremity. Extremities, 2+ lower extremity edema. Cerebellar, finger-nose testing intact. Gait deferred due to patient's safety reasons. Sensory, intact. Lab results: Laboratory Last Values WBC 5.7 thou/uL (4.8-10.8) 11/07/20 07:45 RBC 3.08 mill/uL (4.20-5.40) L 11/07/20 07:45 Hgb 9.4 g/dL (12.0-16.0) L 11/07/20 07:45 Hct 28.3 % (36.0-47.0) L 11/07/20 07:45 MCV 91.7 fL (78.0-98.0) 11/07/20 07:45 MCH 30.3 pg (27.0-31.0) 11/07/20 07:45 MCHC 33.1 g/dL (32.0-36.0) 11/07/20 07:45 RDW 13.5 % (11.5-14.5) 11/07/20 07:45 Plt Count 202 thou/uL (130-400) 11/07/20 07:45 MPV 7.9 fL (7.4-10.4) 11/07/20 07:45 Neutrophils % 67.6 % (42.0-75.0) 11/07/20 07:45 Lymphocytes % 24.9 % (21.0-51.0) 11/07/20 07:45 Monocytes % 6.3 % (0.0-10.0) 11/07/20 07:45 Eosinophils % 0.8 % (0.0-10.0) 11/07/20 07:45 Basophils % 0.5 % (0.0-1.0) 11/07/20 07:45 Neutrophils # 3.9 thou/uL (1.40-6.50) 11/07/20 07:45 Lymphocytes # 1.4 thou/uL (1.20-3.40) 11/07/20 07:45 Monocytes # 0.4 thou/uL (0.11-0.59) 11/07/20 07:45 Eosinophils # 0.0 thou/uL (0.0-0.7) 11/07/20 07:45 Basophils # 0.0 thou/uL (0.0-0.2) 11/07/20 07:45 Sodium 137 mmol/L (136-145) 11/07/20 07:45 Potassium 4.4 mmol/L (3.5-5.1) 11/07/20 07:45 Chloride 101 mmol/L (98-107) 11/07/20 07:45 Carbon Dioxide 28 mmol/L (23-31) 11/07/20 07:45 Anion Gap 12 mmol/L (10-20) 11/07/20 07:45 BUN 16 mg/dL (9.8-20.1) 11/07/20 07:45 Creatinine 3.46 mg/dL (0.6-1.1) H 11/07/20 07:45 Estimated GFR (MDRD) 13 11/07/20 07:45 Glucose 88 mg/dL (80-115) 11/07/20 07:45 POC Glucose 85 mg/dL (70-100) 11/07/20 07:49 Calcium 6.9 mg/dL (7.8-10.44) L 11/07/20 07:45 Total Bilirubin 0.2 mg/dL (0.2-1.2) 11/07/20 07:45 AST 23 U/L (5-34) 11/07/20 07:45 ALT 13 U/L (8-55) 11/07/20 07:45 Alkaline Phosphatase 82 U/L (40-110) 11/07/20 07:45 Creatine Kinase 43 U/L (29-168) 11/07/20 07:45 CK-MB (CK-2) 0.5 ng/mL (0-6.6) 11/07/20 07:45 Troponin I 0.022 ng/mL (< 0.028) 11/07/20 14:21 Serum Total Protein 6.3 g/dL (5.8-8.1) 11/07/20 07:45 Albumin 2.4 g/dL (3.4-4.8) L 11/07/20 07:45 Globulin 3.9 g/dL (2.4-3.5) H 11/07/20 07:45 Albumin/Globulin Ratio 0.6 g/dL (1.2-2.2) L 11/07/20 07:45 Chest x-ray Status: image reviewed by me EKG Status: image reviewed by me Additional Comments: A fib. DATA REVIEWED: I reviewed the labs, which were significant for anemia. Hemoglobin of 9.4, hematocrit of 28.3. Creatinine of 3.46. Chest x-ray did not reveal any acute process. An EKG showed atrial fibrillation. ASSESSMENT AND PLAN: 1) TIA (transient ischemic attack) Code(s): G45.9 - TRANSIENT CEREBRAL ISCHEMIC ATTACK, UNSPECIFIED Status: Acute (2) Atrial fibrillation Code(s): I48.91 - UNSPECIFIED ATRIAL FIBRILLATION Status: Chronic (3) End stage renal disease on dialysis Code(s): N18.6 - END STAGE RENAL DISEASE; Z99.2 - DEPENDENCE ON RENAL DIALYSIS Status: Chronic (4) Seizure disorder Code(s): G40.909 - EPILEPSY, UNSP, NOT INTRACTABLE, WITHOUT STATUS EPILEPTICUS Status: Chronic Ms. Disha Munoz is a 60-year-old female with history significant for atrial fibrillation, end-stage renal disease, seizure disorder, presented with speech deficit, which is currently improved, most likely transient ischemic attack. Consider MRI of the brain with contrast, 2D echo to evaluate for left ventricular ejection fraction and carotid Dopplers to rule out hemodynamically significant stenosis. Check lipid panel, hemoglobin A1c, and TSH. Atrial fibrillation is rate controlled. Start aspirin for secondary stroke prevention. Continue telemetry. Resume asa and statin. EEG to rule out cortical irritability. Continue home medication regimen of Keppra and carbamazepine. Neuro checks every 4 hours. Permissive control of blood pressure at this time. Strict control of blood glucose. PT/OT/speech. Continue medical management per Primary Team and Nephrology. We will continue to follow. An MRI of the brain reviewed, which was negative for acute intracranial pathology, most likely transient ischemic attack. Strict control of blood pressure and blood glucose. We will continue to follow. Thank you for the consult. Job ID: [id number] REBEL
[2020-11-08] MEDS: Aspirin Chewable 81 MG TAB PO SCH (13:41)
[2020-11-08] MEDS: carBAMazepine 200 MG TAB PO SCH ×2 (13:41→23:44)
[2020-11-08] MEDS: levETIRAcetam 500 MG TAB PO SCH ×2 (13:42→23:43)
--- NOTE | 2020-11-08 16:27 | PDOC.EEG ---
Neurology EEG Report - Report Report: his EEG was performed using 24 channel [employer] video EEG machine with 24 disc electrodes. This was an extended 2 hours 7 minutes of inpatient video EEG recording. Digital analysis of the EEG was done for spike and seizure detection which revealed abnormalities. Background: The posterior background rhythm is 9-10 Hz. The background rhythm attenuates with eye opening and enhances with eye closure. Hyperventilation: Not performed. Photic Stimulation: No significant response. Sleep: No stage change is observed. EEG Diagnosis: Occasional left temporal sharps seen during the recording.(F7,T3,T5). Absence of posterior background rhythm. 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 No electrographic seizures captured during the recording.
[2020-11-08] MEDS ORDERED: Heparin 10,000 UNITS/ 10 ML VIAL ONE (16:47)
[2020-11-08] MEDS: Carvedilol 25 MG TAB PO SCH (17:07)
[2020-11-08] MEDS: Atorvastatin Calcium 40 MG TAB PO SCH (21:15)
[2020-11-09 05:42] LABS: #Eosinphils 0.1 thou/uL (0.0-0.7); #Lymphocytes 1.4 thou/uL (1.20-3.40); #Monocytes 0.3 thou/uL (0.11-0.59); #Neutrophils 3.1 thou/uL (1.40-6.50); %Basophils 0.7 % (0.0-1.0); %Eosinophils 1.8 % (0.0-10.0); %Monocytes 5.7 % (0.0-10.0); %Neutrophils 62.9 % (42.0-75.0); Hemoglobin 9.1 g/dL (12.0-16.0); Mean Corpuscular HGB CONC 32.5 g/dL (32.0-36.0); Mean Corpuscular Hemoglobin 30.4 pg (27.0-31.0); Mean Corpuscular Volume 93.5 fL (78.0-98.0); Mean Platelet Volume 8.4 fL (7.4-10.4); Platelet Count 154 thou/uL (130-400); RBC Distribution Width 13.5 % (11.5-14.5); White Blood Cell (WBC) Count 4.9 thou/uL (4.8-10.8)
[2020-11-09 05:47] LABS: Anion Gap 14 mmol/L (10-20); BUN (Urea Nitrogen) 14 mg/dL (9.8-20.1); Calc. Creatinine Clearance 22 mL/min (70-130); Calcium 6.9 mg/dL (7.8-10.44); Carbon Dioxide 24 mmol/L (23-31); Chloride 102 mmol/L (98-107); Glucose 76 mg/dL (80-115); Potassium 3.8 mmol/L (3.5-5.1); Sodium 136 mmol/L (136-145)
[2020-11-09] MEDS ORDERED: Silver Sulfadiazine 50 GM TUBE TOP SCH (09:00)
[2020-11-09] MEDS: carBAMazepine 200 MG TAB PO SCH (09:08)
[2020-11-09] MEDS: Carvedilol 25 MG TAB PO SCH (09:10)
[2020-11-09] MEDS: levETIRAcetam 500 MG TAB PO SCH (09:10)
[2020-11-09] MEDS: Aspirin Chewable 81 MG TAB PO SCH (09:10)
[2020-11-09] MEDS ORDERED: hydrOXYzine 25 MG TAB PO PRN (10:07)
[2020-11-09 11:33] VITALS: TEMP 97.5
[2020-11-09 12:45] VITALS: BP 138/85
== END 2020-11-09 13:30 | disposition home health service (06) ==
LOC: ERS 07:35 → 2SE 14:06
PROVIDERS: ADMIT Internal Medicine; ATTEND Internal Medicine
DX: R53.1 Weakness (principal); R47.81 Slurred speech; I48.91 Unspecified atrial fibrillation; I12.0 Hypertensive chronic kidney disease with stage 5 chronic kidney disease or end stage renal disease; N18.6 End stage renal disease; G40.909 Epilepsy, unspecified, not intractable, without status epilepticus; D36.10 Benign neoplasm of peripheral nerves and autonomic nervous system, unspecified; E87.70 Fluid overload, unspecified; Z79.82 Long term (current) use of aspirin; Z79.899 Other long term (current) drug therapy; Z87.19 Personal history of other diseases of the digestive system; Z99.2 Dependence on renal dialysis
CPT/HCPCS: 36415; 36416; 70450; 70551; 71045; 80048; 80053; 80061; 82550; 82553; 84484; 85025; 90935; 93005; 93306; 93880; 94640; 95712; 95819; 95957; G0257; G0378; J1644; J7620; Q0163

== ENCOUNTER 2020-12-13 06:45 | Day surgery (SDC) | payer OTHER ==
[2020-12-11 14:22] VITALS: BMI 23.3
[2020-12-13 07:25] VITALS: BP 125/78; TEMP 98
[2020-12-13] MEDS ORDERED: Heparin 1,000 UNITS/ML VIAL ONE (14:33)
[2020-12-13] MEDS ORDERED: Iopamidol 300 61% 100 ML VIAL FS ONE (15:00)
== END 2020-12-13 09:45 | disposition home or self-care (01) ==
LOC: SPEC 06:45
PROVIDERS: ATTEND Specialist
PROC: 057F3ZZ Dilation of Left Cephalic Vein, Percutaneous Approach (ICD-10-PCS; principal; 2020-12-13)
DX: T82.898A Other specified complication of vascular prosthetic devices, implants and grafts, initial encounter (principal); I87.1 Compression of vein; N18.6 End stage renal disease; Z79.82 Long term (current) use of aspirin; Z79.899 Other long term (current) drug therapy
CPT/HCPCS: 36901; 36902; 76937; C1725; J1644; Q9967

== ENCOUNTER 2021-02-22 09:24 | Outpatient (CLI) | payer OTHER ==
[2021-02-22 12:13] LABS: #Eosinphils 0.2 10x3/uL (0.0-0.5); #Monocytes 0.3 10x3/uL (0.0-1.1); %Basophils 0.2 % (0.0-2.0); %Eosinophils 3.3 % (0.0-6.0); %Lymphocytes 23.4 % (18.0-47.0); %Monocytes 6.3 % (0.0-10.0); %Neutrophils 66.6 % (40.0-75.0); Hemoglobin 10.1 g/dL (12.0-15.5); Mean Corpuscular HGB CONC 30.9 g/dL (32.0-36.0); Mean Corpuscular Hemoglobin 31.8 pg (27.0-33.0); Mean Corpuscular Volume 102.8 fl (81.6-98.3); Mean Platelet Volume 10.4 fl (7.4-10.4); Platelet Count 164 10x3/uL (150-450); RBC Distribution Width 13.8 % (11.5-14.5); Red Blood Cell (RBC) Count 3.18 10x6/uL (3.90-5.03); White Blood Cell (WBC) Count 4.6 10x3/uL (3.5-10.5)
[2021-02-22 12:25] LABS: Anion Gap 12 mmol/L (10-20); BUN (Urea Nitrogen) 15 mg/dL (9.8-20.1); Calc. Creatinine Clearance 0 mL/min (70-130); Calcium 8.2 mg/dL (7.8-10.44); Carbon Dioxide 33 mmol/L (23-31); Chloride 95 mmol/L (98-107); Glucose 85 mg/dL (80-115); Sodium 136 mmol/L (136-145)
[2021-02-23 00:07] LABS: SARS-CoV-2 PCR by NAA Not Detected (NotDetected)
== END 2021-02-22 09:25 | disposition home or self-care (01) ==
LOC: LABBT 09:24
PROVIDERS: ATTEND Specialist
DX: Z01.818 Encounter for other preprocedural examination (principal); I12.0 Hypertensive chronic kidney disease with stage 5 chronic kidney disease or end stage renal disease; N18.6 End stage renal disease; T22.30XA Burn of third degree of shoulder and upper limb, except wrist and hand, unspecified site, initial encounter; Z20.822 Contact with and (suspected) exposure to COVID-19
CPT/HCPCS: 80048; 85025; U0003; U0005

== ENCOUNTER 2021-02-27 05:55 | Day surgery (SDC) | payer OTHER ==
[2021-02-26 11:43] VITALS: BMI 20.1
[2021-02-27] MEDS ORDERED: Propofol 500 MG/50 ML VIAL ONE (06:23)
[2021-02-27] MEDS ORDERED: Fentanyl 100 MCG/2 ML VIAL ONE (06:23)
[2021-02-27] MEDS ORDERED: Protamine Sulfate 50 MG/5 ML VIAL ONE (06:38)
[2021-02-27] MEDS ORDERED: Heparin 10,000 UNITS/ 10 ML VIAL ONE (06:38)
[2021-02-27] MEDS ORDERED: Bupivacaine PF 0.5% 30 ML VIAL ONE (06:38)
[2021-02-27] MEDS ORDERED: Lidocaine 1% w/Epinephrine 1:100K 20 ML VIAL ONE (06:38)
[2021-02-27] MEDS ORDERED: Lidocaine 2% PF 5 ML VIAL ONE (06:38)
[2021-02-27] MEDS ORDERED: Heparin 5,000 UNITS/ML VIAL ONE (06:42)
[2021-02-27] MEDS ORDERED: Bupivacaine HCl 0.5%/Epinephrine 1:200,000/PF 30 ml Vial ONE (07:03)
[2021-02-27] MEDS ORDERED: PROPOFOL 200 MG/20 ML VIAL ONE (07:03)
[2021-02-27] MEDS ORDERED: Ondansetron PF 4 MG/2 ML Vial ONE (07:03)
[2021-02-27] MEDS ORDERED: HYDROcodone/Acetaminophen 5/325 mg Tablet ONE (10:05)
[2021-02-27] MEDS ORDERED: Heparin 1,000 UNITS/ML VIAL ONE (10:56)
== END 2021-02-27 11:30 | disposition home or self-care (01) ==
LOC: SDC 05:55
PROVIDERS: ATTEND Specialist
PROC: 05SC3ZZ Reposition Left Basilic Vein, Percutaneous Approach (ICD-10-PCS; principal; 2021-02-27)
DX: T82.590A Other mechanical complication of surgically created arteriovenous fistula, initial encounter (principal); I12.0 Hypertensive chronic kidney disease with stage 5 chronic kidney disease or end stage renal disease; N18.6 End stage renal disease; G43.909 Migraine, unspecified, not intractable, without status migrainosus; E78.5 Hyperlipidemia, unspecified; I42.8 Other cardiomyopathies; Z79.82 Long term (current) use of aspirin; Z79.899 Other long term (current) drug therapy
CPT/HCPCS: J0690; J1644; J2001; J2405; J2704; J2720; J3010; S0020

== ENCOUNTER 2021-07-10 12:40 | Inpatient (IN) | payer OTHER ==
[~2021-07-10 12:40] MED LIST: Heparin 10,000 UNITS/ 10 ML VIAL ONE
[2021-07-10 14:39] LABS: Anion Gap 29 mmol/L (10-20); Calc. Creatinine Clearance 0 mL/min (70-130); Carbon Dioxide 15 mmol/L (23-31); Chloride 96 mmol/L (98-107); Sodium 134 mmol/L (136-145)
[2021-07-10 14:40] LABS: ALT (SGPT) 11 U/L (8-55); AST (SGOT) 12 U/L (5-34); Albumin 3.3 g/dL (3.4-4.8); Alkaline Phosphatase 127 U/L (40-110); Bilirubin, Total 0.3 mg/dL (0.2-1.2); Calcium 6.6 mg/dL (7.8-10.44); Globulin 4.2 g/dL (2.4-3.5); Glucose 84 mg/dL (80-115); Protein, Total 7.5 g/dL (5.8-8.1)
[2021-07-10 14:44] LABS: #Eosinphils 0.1 thou/uL (0.0-0.7); #Lymphocytes 1.4 thou/uL (1.20-3.40); #Monocytes 0.4 thou/uL (0.11-0.59); #Neutrophils 2.7 thou/uL (1.40-6.50); %Basophils 0.5 % (0.0-1.0); %Eosinophils 1.8 % (0.0-10.0); %Lymphocytes 30.6 % (21.0-51.0); %Monocytes 8.4 % (0.0-10.0); %Neutrophils 58.7 % (42.0-75.0); Hemoglobin 12.7 g/dL (12.0-16.0); Mean Corpuscular HGB CONC 34.9 g/dL (32.0-36.0); Mean Corpuscular Hemoglobin 32.7 pg (27.0-31.0); Mean Corpuscular Volume 93.5 fL (78.0-98.0); Mean Platelet Volume 9.6 fL (7.4-10.4); Platelet Count 96 thou/uL (130-400); Platelet Morphology Comment Appears Decreased; RBC Distribution Width 13.4 % (11.5-14.5); RBC Morphology Normal; Red Blood Cell (RBC) Count 3.89 mill/uL (4.20-5.40); White Blood Cell (WBC) Count 4.7 thou/uL (4.8-10.8)
[2021-07-10 14:51] LABS: BUN (Urea Nitrogen) 146 mg/dL (9.8-20.1)
[2021-07-10 15:43] LABS: Phosphorus 9.4 mg/dL (2.3-4.7)
[2021-07-10 15:49] LABS: Digoxin 1.04 ng/mL (0.8-2.0)
[2021-07-10] MEDS ORDERED: Albuterol Sulfate 2.5 mg/3 ml Neb ONE (16:24)
[2021-07-10] MEDS ORDERED: Albuterol Sulfate 2.5 mg/0.5 ml Neb ONE (16:25)
[2021-07-10] MEDS ORDERED: Magnesium 2 GM/50 ML BAG (IN WATER) ONE ×2 (16:38→16:39)
[2021-07-10] MEDS ORDERED: Dextrose 50% Abboject 50 ML SYRINGE ONE ×3 (16:38→18:23)
[2021-07-10] MEDS ORDERED: Insulin Regular 300 UNITS/3 ML VIAL ONE (16:41)
[2021-07-10 17:35] LABS: SARS-CoV-2 NAA Rapid Test Not Detected (NotDetected)
[2021-07-10 17:43] LABS: HBSAg Index 0.18 S/CO (0-0.99); Hep B Surf Ag Non-Reactive S/CO (NonReactive)
[2021-07-10] MEDS ORDERED: Atropine Sulfate 1 mg/1 ml Vial IVP SCH (19:45)
[2021-07-10] MEDS ORDERED: Atropine Sulfate 1 mg/10 ml Syringe ONE ×2 (19:55→20:23)
[2021-07-10] MEDS ORDERED: Acetaminophen 325 MG TAB PO PRN (20:12)
[2021-07-10] MEDS ORDERED: Acetaminophen 650 MG Suppository PR PRN (20:12)
[2021-07-10] MEDS ORDERED: DOPamine 400 MG/D5W 250 ML 250 ML IVPB SCH (20:15)
[2021-07-10] MEDS ORDERED: DOPamine 400 MG/D5W 250 ML 250 ML ONE (20:15)
[2021-07-10 20:43] LABS: Anion Gap 27 mmol/L (10-20); Calc. Creatinine Clearance 0 mL/min (70-130); Calcium 6.5 mg/dL (7.8-10.44); Carbon Dioxide 14 mmol/L (23-31); Chloride 95 mmol/L (98-107); Glucose 149 mg/dL (80-115); Magnesium 3.2 mg/dL (1.6-2.6); Potassium 5.3 mmol/L (3.5-5.1); Sodium 131 mmol/L (136-145); Troponin I 0.025 ng/mL (< 0.028)
[2021-07-10 20:54] LABS: BUN (Urea Nitrogen) 139 mg/dL (9.8-20.1)
[2021-07-10] MEDS ORDERED: Vancomycin 1.5 GRAM/300 ML BAG 1.5 GM in Premix Bag 1 BAG IVPB SCH (22:29)
[2021-07-11] MEDS ORDERED: Lorazepam 2 MG/ML VIAL ONE (01:36)
[2021-07-11] MEDS ORDERED: Lorazepam 2 MG/ML VIAL SLOW IVP SCH (02:00)
[2021-07-11] MEDS ORDERED: levETIRAcetam in NS 500 MG in Premix Bag 1 BAG IVPB SCH (02:00)
[2021-07-11 04:18] LABS: #Eosinphils 0.1 thou/uL (0.0-0.7); #Lymphocytes 0.8 thou/uL (1.20-3.40); #Monocytes 0.3 thou/uL (0.11-0.59); #Neutrophils 4.8 thou/uL (1.40-6.50); %Basophils 0.2 % (0.0-1.0); %Eosinophils 0.9 % (0.0-10.0); %Lymphocytes 12.9 % (21.0-51.0); %Monocytes 5.1 % (0.0-10.0); %Neutrophils 80.9 % (42.0-75.0); Hemoglobin 12.5 g/dL (12.0-16.0); Mean Corpuscular HGB CONC 34.1 g/dL (32.0-36.0); Mean Corpuscular Hemoglobin 31.1 pg (27.0-31.0); Mean Corpuscular Volume 91.4 fL (78.0-98.0); Mean Platelet Volume 9.2 fL (7.4-10.4); Platelet Count 101 thou/uL (130-400); RBC Distribution Width 13.4 % (11.5-14.5); Red Blood Cell (RBC) Count 4.01 mill/uL (4.20-5.40); White Blood Cell (WBC) Count 5.9 thou/uL (4.8-10.8)
[2021-07-11 04:30] LABS: Anion Gap 17 mmol/L (10-20); BUN (Urea Nitrogen) 47 mg/dL (9.8-20.1); Calc. Creatinine Clearance 9 mL/min (70-130); Calcium 7.4 mg/dL (7.8-10.44); Carbon Dioxide 23 mmol/L (23-31); Chloride 99 mmol/L (98-107); Glucose 115 mg/dL (80-115); Potassium 3.6 mmol/L (3.5-5.1); Sodium 135 mmol/L (136-145)
[2021-07-11] MEDS ORDERED: levETIRAcetam 500 MG TAB PO SCH (09:00)
[2021-07-11] MEDS ORDERED: carBAMazepine 200 MG TAB PO SCH (09:00)
[2021-07-11] MEDS: carBAMazepine 200 MG TAB PO SCH ×2 (09:23→20:37)
[2021-07-11] MEDS: levETIRAcetam 500 MG TAB PO SCH ×2 (09:23→20:55)
[2021-07-11] MEDS ORDERED: Activase 2 MG VIAL CATH SCH (10:15)
[2021-07-11] MEDS ORDERED: Sterile Water 10 ML VIAL IVP SCH (10:15)
[2021-07-11] MEDS ORDERED: CEFAZOLIN 2 GM in Premix Bag 1 BAG IVPB SCH (12:30)
[2021-07-11] MEDS ORDERED: ceFAZolin 2 GM/DEX 5% 100 ML BAG ONE (14:08)
[2021-07-11] MEDS ORDERED: Heparin 1,000 UNITS/ML VIAL ONE (14:09)
[2021-07-11] MEDS ORDERED: PROPOFOL 40 ML ONE (14:25)
[2021-07-11] MEDS ORDERED: Fentanyl 100 MCG/2 ML VIAL ONE (14:25)
[2021-07-11] MEDS ORDERED: Lidocaine 1% w/Epinephrine 1:100K 20 ML VIAL ONE (14:26)
[2021-07-11] MEDS ORDERED: Bupivacaine 0.25% HCL 30 ML VIAL ONE (14:26)
[2021-07-11] MEDS ORDERED: Heparin 10,000 UNITS/ 10 ML VIAL ONE (14:27)
[2021-07-11] MEDS ORDERED: Sodium Chloride 0.9% 20 ML ONE (14:31)
[2021-07-11] MEDS ORDERED: Ondansetron HCl/PF 4 MG/2 ML Vial IVP PRN (14:34)
[2021-07-11] MEDS ORDERED: Promethazine HCl 25 MG/ML VIAL IVPB PRN (14:34)
[2021-07-11] MEDS ORDERED: Promethazine HCl 25 MG/ML VIAL IM PRN (14:34)
[2021-07-11] MEDS ORDERED: ePHEDrine 50 MG/ML VIAL ONE (15:03)
[2021-07-12] MEDS: levETIRAcetam 500 MG TAB PO SCH ×2 (08:10→14:54)
[2021-07-12] MEDS: carBAMazepine 200 MG TAB PO SCH ×2 (08:11→21:11)
[2021-07-12] MEDS ORDERED: Heparin 10,000 UNITS/ 10 ML VIAL ONE (14:18)
[2021-07-12 14:21] VITALS: BMI 21.2
[2021-07-12] MEDS ORDERED: Carvedilol 6.25 MG TAB PO SCH ×3 (15:30→17:00)
[2021-07-12] MEDS ORDERED: Digoxin 0.5 MG/2 ML AMP SLOW IVP SCH (15:30)
[2021-07-12] MEDS: AMOXICILLIN 500 MG CAPSULE PO SCH (21:11)
[2021-07-13] MEDS ORDERED: carBAMazepine 200 MG TAB PO SCH (03:00)
[2021-07-13] MEDS: AMOXICILLIN 500 MG CAPSULE PO SCH ×2 (06:08→13:44)
[2021-07-13] MEDS ORDERED: Carvedilol 6.25 MG TAB PO SCH ×2 (08:00→15:00)
[2021-07-13] MEDS: levETIRAcetam 500 MG TAB PO SCH (08:51)
[2021-07-13] MEDS ORDERED: FLU VACC QS2021-22(6MOS UP)/PF 60 MCG/0.5 ML SYRINGE IM ONE (09:00)
[2021-07-13] MEDS ORDERED: Prevnar 13-Val Conj/PF 0.5 ML SYRINGE IM ONE (09:00)
[2021-07-13] MEDS ORDERED: Digoxin 0.125 MG TAB PO SCH (11:30)
[2021-07-13 13:00] VITALS: TEMP 98.5
[2021-07-13 13:47] VITALS: BP 112/76
[2021-07-16] MEDS ORDERED: Digoxin 0.125 MG TAB PO SCH (09:00)
== END 2021-07-13 14:30 | disposition home or self-care (01) | DRG 640 ==
LOC: ERS 12:40 → IMCU/EMU 15:32
PROVIDERS: ADMIT Family Medicine; ATTEND Family Medicine
PROC: 06HY33Z Insertion of Infusion Device into Lower Vein, Percutaneous Approach (ICD-10-PCS; principal; 2021-07-10)
PROC: 0JH63XZ Insertion of Tunneled Vascular Access Device into Chest Subcutaneous Tissue and Fascia, Percutaneous Approach (ICD-10-PCS; 2021-07-11)
PROC: 02HV33Z Insertion of Infusion Device into Superior Vena Cava, Percutaneous Approach (ICD-10-PCS; 2021-07-11)
PROC: B5181ZA Fluoroscopy of Superior Vena Cava using Low Osmolar Contrast, Guidance (ICD-10-PCS; 2021-07-11)
DX: E87.5 Hyperkalemia (principal); N18.6 End stage renal disease; G93.41 Metabolic encephalopathy; K92.2 Gastrointestinal hemorrhage, unspecified; T82.858A Stenosis of other vascular prosthetic devices, implants and grafts, initial encounter; I42.8 Other cardiomyopathies; M32.9 Systemic lupus erythematosus, unspecified; G40.909 Epilepsy, unspecified, not intractable, without status epilepticus; Z20.822 Contact with and (suspected) exposure to COVID-19; E16.2 Hypoglycemia, unspecified; I48.0 Paroxysmal atrial fibrillation; I10 Essential (primary) hypertension; R00.1 Bradycardia, unspecified; E78.00 Pure hypercholesterolemia, unspecified; Y83.8 Other surgical procedures as the cause of abnormal reaction of the patient, or of later complication, without mention of misadventure at the time of the procedure; Z99.2 Dependence on renal dialysis; Z86.73 Personal history of transient ischemic attack (TIA), and cerebral infarction without residual deficits; Z79.82 Long term (current) use of aspirin; Z79.899 Other long term (current) drug therapy
CPT/HCPCS: 36415; 36416; 36556; 36901; 71045; 80048; 80053; 80162; 83735; 84100; 84484; 85025; 87340; 90471; 90686; 90935; 93005; 93010; 94640; 94644; 96365; 96366; 96367; 96375; 96376; C1752; G0008; G0257; J0461; J1160; J1265; J1642; J1644; J1815; J1953; J2060; J2704; J3010; J3475; J3490; J7611; J7620; S0020; U0002

== ENCOUNTER 2021-07-26 08:37 | Outpatient (CLI) | payer OTHER ==
[2021-07-26 09:48] LABS: Anion Gap 16 mmol/L (10-20); BUN (Urea Nitrogen) 34 mg/dL (9.8-20.1); Calc. Creatinine Clearance 0 mL/min (70-130); Calcium 7.7 mg/dL (7.8-10.44); Carbon Dioxide 28 mmol/L (23-31); Chloride 93 mmol/L (98-107); Glucose 94 mg/dL (80-115); Potassium 3.6 mmol/L (3.5-5.1); Sodium 133 mmol/L (136-145)
[2021-07-26 10:18] LABS: Mean Corpuscular HGB CONC 31.8 g/dL (32.0-36.0); Mean Corpuscular Hemoglobin 30.3 pg (27.0-33.0); Mean Corpuscular Volume 95.2 fl (81.6-98.3); Mean Platelet Volume 9.8 fl (7.4-10.4); Platelet Count 176 10x3/uL (150-450); RBC Distribution Width 13.6 % (11.5-14.5); White Blood Cell (WBC) Count 5.7 10x3/uL (3.5-10.5)
[2021-07-26 17:21] LABS: SARS-CoV-2 PCR by NAA Not Detected (NotDetected)
== END 2021-07-26 08:38 | disposition home or self-care (01) ==
LOC: LABBT 08:37
PROVIDERS: ATTEND Specialist
DX: Z01.818 Encounter for other preprocedural examination (principal); T22.30XA Burn of third degree of shoulder and upper limb, except wrist and hand, unspecified site, initial encounter; I12.0 Hypertensive chronic kidney disease with stage 5 chronic kidney disease or end stage renal disease; N18.6 End stage renal disease; Z20.822 Contact with and (suspected) exposure to COVID-19
CPT/HCPCS: 80048; 85027; 93005; 93010; U0003; U0005

== ENCOUNTER 2021-07-31 05:54 | Day surgery (SDC) | payer OTHER ==
[2021-07-31] MEDS ORDERED: ceFAZolin 2 GM/DEX 5% 100 ML BAG ONE (06:13)
[2021-07-31] MEDS ORDERED: Protamine Sulfate 50 MG/5 ML VIAL ONE (06:31)
[2021-07-31] MEDS ORDERED: Bupivacaine PF 0.5% 30 ML VIAL ONE ×2 (06:31→07:15)
[2021-07-31] MEDS ORDERED: Heparin 5,000 UNITS/ML VIAL ONE ×2 (06:31→07:14)
[2021-07-31] MEDS ORDERED: Lidocaine 1% w/Epinephrine 1:100K 20 ML VIAL ONE ×2 (06:31→07:15)
[2021-07-31] MEDS ORDERED: Midazolam HCl 2 mg/2 ml Vial ONE (06:41)
[2021-07-31] MEDS ORDERED: Fentanyl 100 MCG/2 ML VIAL ONE ×2 (06:41→10:28)
[2021-07-31] MEDS ORDERED: Bupivacaine 0.25% HCL 30 ML VIAL ONE (07:18)
[2021-07-31] MEDS ORDERED: PROPOFOL 200 MG/20 ML VIAL ONE (07:29)
[2021-07-31] MEDS ORDERED: PHENYLEPHRINE-NS 100 MCG/ML 10 ML SYRINGE ONE (07:29)
[2021-07-31] MEDS ORDERED: Ondansetron PF 4 MG/2 ML Vial ONE (07:29)
[2021-07-31] MEDS ORDERED: ePHEDrine 50 MG/ML VIAL ONE (07:29)
[2021-07-31] MEDS ORDERED: Dexamethasone 20 MG/5 ML VIAL ONE (07:29)
[2021-07-31] MEDS ORDERED: Lidocaine 1% PF 5 ML VIAL ONE (07:29)
[2021-07-31] MEDS ORDERED: Glycopyrrolate 0.2 MG/ML 5 ML SYRINGE ONE (07:29)
[2021-07-31 07:39] LABS: Anion Gap 15 mmol/L (10-20); BUN (Urea Nitrogen) 34 mg/dL (9.8-20.1); Calc. Creatinine Clearance 0 mL/min (70-130); Carbon Dioxide 29 mmol/L (23-31); Chloride 95 mmol/L (98-107); Glucose 106 mg/dL (80-115); Potassium 3.5 mmol/L (3.5-5.1); Sodium 135 mmol/L (136-145)
[2021-07-31] MEDS ORDERED: Heparin 1,000 UNITS/ML VIAL ONE (11:52)
== END 2021-07-31 12:05 | disposition home or self-care (01) ==
LOC: SDC 05:54
PROVIDERS: ATTEND Specialist
PROC: 031C0ZF Bypass Left Radial Artery to Lower Arm Vein, Open Approach (ICD-10-PCS; principal; 2021-07-31)
DX: I12.0 Hypertensive chronic kidney disease with stage 5 chronic kidney disease or end stage renal disease (principal); N18.6 End stage renal disease; T82.590A Other mechanical complication of surgically created arteriovenous fistula, initial encounter; I87.1 Compression of vein; I42.0 Dilated cardiomyopathy; G40.909 Epilepsy, unspecified, not intractable, without status epilepticus; E78.5 Hyperlipidemia, unspecified; Z79.82 Long term (current) use of aspirin; Z79.899 Other long term (current) drug therapy; Z99.2 Dependence on renal dialysis; Y74.1 Therapeutic (nonsurgical) and rehabilitative general hospital and personal-use devices associated with adverse incidents
CPT/HCPCS: 80048; J1100; J1644; J2250; J2405; J2704; J2720; J3010; J3490; S0020

== ENCOUNTER 2021-09-20 12:44 | Observation (INO) | payer OTHER ==
[2021-09-20 13:47] LABS: #Lymphocytes 1.7 thou/uL (1.20-3.40); #Monocytes 0.5 thou/uL (0.11-0.59); #Neutrophils 2.8 thou/uL (1.40-6.50); %Eosinophils 0.8 % (0.0-10.0); %Lymphocytes 34.5 % (21.0-51.0); %Monocytes 9.7 % (0.0-10.0); Hemoglobin 11.8 g/dL (12.0-16.0); Mean Corpuscular HGB CONC 33.9 g/dL (32.0-36.0); Mean Corpuscular Hemoglobin 35.5 pg (27.0-31.0); Mean Platelet Volume 7.1 fL (7.4-10.4); Platelet Count 184 thou/uL (130-400); RBC Distribution Width 14.4 % (11.5-14.5); Red Blood Cell (RBC) Count 3.33 mill/uL (4.20-5.40)
[2021-09-20 14:04] LABS: Phosphorus 4.5 mg/dL (2.3-4.7)
[2021-09-20 14:08] LABS: ALT (SGPT) 12 U/L (8-55); AST (SGOT) 15 U/L (5-34); Albumin 3.4 g/dL (3.4-4.8); Alkaline Phosphatase 161 U/L (40-110); Anion Gap 15 mmol/L (10-20); BUN (Urea Nitrogen) 29 mg/dL (9.8-20.1); Bilirubin, Total 0.3 mg/dL (0.2-1.2); Calc. Creatinine Clearance 0 mL/min (70-130); Calcium 7.8 mg/dL (7.8-10.44); Carbon Dioxide 28 mmol/L (23-31); Chloride 95 mmol/L (98-107); Glucose 115 mg/dL (80-115); Magnesium 2.2 mg/dL (1.6-2.6); Protein, Total 7.4 g/dL (5.8-8.1); Sodium 134 mmol/L (136-145)
[2021-09-20 16:22] VITALS: BMI 22.4
[2021-09-20 16:28] VITALS: TEMP 97.8
[2021-09-20] MEDS ORDERED: FLU VACC QS2021-22(6MOS UP)/PF 60 MCG/0.5 ML SYRINGE IM ONE (16:30)
[2021-09-20] MEDS ORDERED: Ondansetron ODT 4 MG TAB SL PRN (17:15)
[2021-09-20] MEDS ORDERED: Ondansetron PF 4 MG/2 ML Vial IVP PRN (17:15)
[2021-09-20] MEDS ORDERED: Acetaminophen 325 MG TAB PO PRN (17:15)
[2021-09-20 17:31] LABS: HBSAg Index 0.25 S/CO (0-0.99); Hep B Surf Ag Non-Reactive S/CO (NonReactive)
[2021-09-20 17:37] LABS: HBSAB Concentration 509.17 mIU/mL; Hep B Surf AB Reactive (NonReactive)
[2021-09-20 20:25] VITALS: BP 114/63
[2021-09-20] MEDS ORDERED: Cyanocobalamin (Vitamin B-12) 1,000 MCG TAB PO SCH (21:00)
[2021-09-20] MEDS ORDERED: Folic Acid 1 MG TAB PO SCH (21:00)
[2021-09-21] MEDS ORDERED: Zinc Sulfate 220 MG CAP PO SCH (09:00)
[2021-09-21] MEDS ORDERED: Ascorbic Acid 500 mg Chewable Tablet PO SCH (09:00)
== END 2021-09-20 20:50 | disposition left against medical advice (07) ==
LOC: ERS 12:44 → T4-B 15:04
PROVIDERS: ADMIT Internal Medicine; ATTEND Internal Medicine
DX: I13.2 Hypertensive heart and chronic kidney disease with heart failure and with stage 5 chronic kidney disease, or end stage renal disease (principal); N18.6 End stage renal disease; I50.9 Heart failure, unspecified; N17.9 Acute kidney failure, unspecified; U07.1 COVID-19; R56.9 Unspecified convulsions; M32.9 Systemic lupus erythematosus, unspecified; I48.91 Unspecified atrial fibrillation; Z53.29 Procedure and treatment not carried out because of patient's decision for other reasons; Z79.82 Long term (current) use of aspirin; Z79.899 Other long term (current) drug therapy; Z99.2 Dependence on renal dialysis
CPT/HCPCS: 36415; 71045; 80053; 80177; 83735; 84100; 85025; 86706; 87340; 90935; 93005; G0257; G0378

== ENCOUNTER 2022-10-20 22:34 | Emergency (ER) | payer BC ==
[2022-10-20] MEDS ORDERED: Oxymetazoline HCl 0.05% (30 ML BOT) ONE (23:17)
== END 2022-10-21 00:36 | disposition home or self-care (01) ==
LOC: ERS 22:34
DX: R04.0 Epistaxis (principal); N18.6 End stage renal disease; Z79.82 Long term (current) use of aspirin
CPT/HCPCS: 30903

== ENCOUNTER 2024-10-04 00:08 | Emergency (ER) | payer BC, OTHER ==
[2024-10-04] MEDS ORDERED: Lidocaine 1% w/Epinephrine 1:100K 20 ML VIAL ONE (00:47)
[2024-10-04] MEDS ORDERED: Acetaminophen 500 MG TAB ONE (00:53)
== END 2024-10-04 02:35 | disposition home or self-care (01) ==
LOC: ERS 00:08
DX: S42.021A Displaced fracture of shaft of right clavicle, initial encounter for closed fracture (principal); N18.6 End stage renal disease; N17.9 Acute kidney failure, unspecified; Z99.2 Dependence on renal dialysis; Z79.82 Long term (current) use of aspirin; Z79.899 Other long term (current) drug therapy
CPT/HCPCS: 12013; 70450; 71250; 72125

== ENCOUNTER 2025-08-02 09:32 | Outpatient (CLI) | payer BC | END 2025-08-02 09:33 | disposition home or self-care (01) | LOC: RAD 09:32 | PROVIDERS: ATTEND Nurse Practitioner Family | DX: R06.02 Shortness of breath (principal) | CPT/HCPCS: 71046 ==

== ENCOUNTER 2025-09-13 19:32 | Emergency (ER) | payer BC ==
[2025-09-13] MEDS ORDERED: Oxymetazoline HCl 0.05% (30 ML BOT) ONE (21:10)
[2025-09-13 21:48] LABS: ALT (SGPT) 18 U/L (Less than 34); AST (SGOT) 31 U/L (11-34); Albumin 4.1 g/dL (3.1-4.5); Alkaline Phosphatase 164 U/L (40-110); Anion Gap 14 mmol/L (10-20); BUN (Urea Nitrogen) 13 mg/dL (9.8-20.1); Bilirubin, Total 0.6 mg/dL (0.3-1.2); Calc. Creatinine Clearance 0 mL/min (70-130); Calcium 9.5 mg/dL (7.8-10.44); Carbon Dioxide 35 mmol/L (23-31); Chloride 94 mmol/L (98-107); Globulin 5.0 g/dL (2.4-3.5); Glucose 117 mg/dL (80-115); Potassium 3.8 mmol/L (3.5-5.1); Sodium 139 mmol/L (136-145)
[2025-09-13 21:51] LABS: Anisocytosis MODERATE=16-30 cells HPF (0-5); Macrocytosis SLIGHT = 6-15 cells HPF (0-5); Platelet Adequacy Comment Platelets Decreased
[2025-09-13] MEDS ORDERED: Tranexamic Acid 1,000 MG/10 ML VIAL ONE (21:52)
[2025-09-13 21:55] LABS: #Basophils Less than 0.03 10x3/uL (0.0-0.2); #Eosinophils 0.08 10x3/uL (0.0-0.7); #Monocytes 0.46 10x3/uL (0.11-0.59); #Neutrophils 4.19 10x3/uL (1.40-6.50); %Basophils 0.3 % (0.0-1.0); %Eosinophils 1.4 % (0.0-10.0); %Lymphocytes 17.2 % (21.0-51.0); %Monocytes 8.0 % (0.0-10.0); %Neutrophils 72.9 % (42.0-75.0); Hematocrit 34.8 % (36.0-47.0); Hemoglobin 11.0 g/dL (12.0-16.0); Mean Corpuscular Hemoglobin 32.1 pg (27.0-31.0); Mean Corpuscular Volume 103.6 fL (78.0-98.0); Platelet Count 112 10x3/uL (130-400); Red Blood Cell (RBC) Count 3.30 mill/uL (4.20-5.40); White Blood Cell (WBC) Count 5.75 10x3/uL (4.8-10.8)
== END 2025-09-13 22:53 | disposition home or self-care (01) ==
LOC: ERS 19:32
DX: R04.0 Epistaxis (principal); I48.91 Unspecified atrial fibrillation
CPT/HCPCS: 36415; 80053; 85025; 99283